=== PATIENT | female | born 1980 | race Caucasian/White ===

== ENCOUNTER 2018-07-09 11:17 | Observation (INO) | payer BC, SELFPAY ==
--- OUTSIDE RECORDS SUMMARY | 2018-07-09 11:25 | XMS REPORT | Clinical Summary ---
:1980 Author Organization [facility] Address [address] [place] [address] Care Team Providers Name Role Phone Oswaldo Ahmadi MD Primary Care Provider Allergies No Known Allergies Current Medications Prescription Sig. Disp. Refills Start Date End Date Status metFORMIN XR Take 500 mg by 03/15/2018 Active (GLUCOPHAGE-XR) 500 mouth. mg 24 hr tablet VITAMIN D2 50,000 Take 50,000 1 2018 Active unit capsule Units by mouth once a week. escitalopram Take 20 mg by 12 04/21/2018 Active (LEXAPRO) 10 MG mouth daily. tablet estradiol (CLIMARA) APPLY 1 PATCH 4 03/06/2018 Active 0.1 mg/24 hr TO SKIN WEEKLY. ALPRAZolam (XANAX) Take 0.5 mg by 02/21/2018 Active 0.5 MG tablet mouth. dextroamphetamine-a Take 10 mg by 03/15/2018 Active mphetamine mouth. (ADDERALL) 20 mg tablet estradiol (ESTRACE) Apply nightly 42.5 g 11 05/22/2018 05/22/2019 Active 0.01 % (0.1 for 2 weeks, mg/gram) vaginal then 2 times cream per week losartan (COZAAR) Take 100 mg by 1 05/30/2018 Active 100 MG tablet mouth daily. losartan-hydrochlor Take 1 tablet 06/18/2018 Discontinued othiazide (HYZAAR) by mouth. 100-12.5 mg per tablet traMADol (ULTRAM) Take 1 tablet 20 tablet 0 06/22/2018 06/27/2018 50 mg tablet (50 mg total) by mouth every 6 (six) hours as needed for moderate pain for up to 5 days. nitrofurantoin, Take 1 capsule 6 capsule 0 06/22/2018 06/25/2018 macrocrystal-monohy (100 mg total) drate, (MACROBID) by mouth 2 100 MG capsule (two) times a day for 3 days. Active Problems Problem Noted Date Appendicitis 03/23/2017 Attention deficit disorder of adult 10/28/2015 Surgical menopause on hormone replacement therapy 07/22/2015 Anemia 05/21/2015 Endometriosis determined by laparoscopy 05/20/2015 Other specified symptom associated with female genital organs 05/20/2015 Encounters Date Type Specialty Care Team Description 07/03/2018 Office Visit Urology Gwendolyn Xavier, Post-operative state (Primary Dx) 06/22/2018 Hospital Encounter Urology Gwendolyn Xavier MD 06/22/2018 Procedure Pass Urology 06/22/2018 Surgery Urology Gwendolyn Xavier, PLACEMENT OF RETROPUBIC MIDURETHRAL SLING, CYSTO 06/21/2018 Telephone Urology Belinda Hinds MA 06/18/2018 Anesthesia Event Urology Floresita Lora NP 06/13/2018 Procedure visit Urology Gwendolyn Xavier, ZARINA (stress urinary MD incontinence, female) (Primary Dx) 06/12/2018 Telephone Urology Joya Juan LVN 06/06/2018 Telephone Urology Gwendolyn Xavier MD 06/04/2018 Telephone Urology Gwendolyn Xavier MD 05/28/2018 Telephone Urology Gwendolyn Xavier MD 05/23/2018 Telephone Urology Gwendolyn Xavier MD 05/22/2018 Office Visit Urology Gwendolyn Xavier, Mixed stress and urge urinary incontinence (Primary Dx); Vaginal atrophy after 07/08/2017 Family History Relation Name Status Comments Father Alive Mother Alive Social History Tobacco Use Types Packs/Day Years Used Date Current Every Day Smoker 0.5 20 Smokeless Tobacco: Never Used Alcohol Use Drinks/Week oz/Week Comments Yes Sex Assigned at Date Recorded Not on file Last Filed Vital Signs Vital Sign Reading Time Taken Blood Pressure 114/58 06/22/2018 10:57 AM CDT Pulse 72 06/22/2018 10:57 AM CDT Temperature 36.5 C (97.7 F) 06/22/2018 9:31 AM CDT Respiratory Rate 15 06/22/2018 10:57 AM CDT Oxygen Saturation 98% 06/22/2018 10:57 AM CDT Inhaled Oxygen Concentration - - Weight 80.5 kg (177 lb 6 oz) 06/22/2018 6:32 AM CDT Height 165.1 cm (5' 5") 06/22/2018 6:32 AM CDT Body Mass Index 29.52 06/22/2018 6:32 AM CDT Plan of Treatment Date Type Specialty Care Team Description 08/01/2018 Office Visit Urology Gwendolyn Xavier MD [address] [facility] [address] [place] [address] Health Maintenance Due Date Last Done Comments CERVICAL CANCER SCREENING 2000 INFLUENZA VACCINE 04/11/2018 Implants Implanted Type Area Greige Goods Marker Device Expiration Model / Identifier Date Serial / Lot System Sling Mdurethrl Trnsvagnl Mesh Asmbly Advantage Fit - [id number] Urological N/A: BSC 03/26/2021 [id number] / Implanted: Qty: 1 on 06/22/2018 by Gwendolyn Xavier MD Implants or N/A UROLOGY/GYNECOL / Sets [id number] Procedures Procedure Name Priority Date/Time Associated Comments Diagnosis [id number] Routine 07/03/2018 11:41 Post-operative Results for this AM CDT state procedure are in the results section. POC URINALYSIS Routine 07/03/2018 11:41 Post-operative Results for this DIPSTICK AM CDT state procedure are in the results section. OK AN ELECTIVE Routine 06/22/2018 8:21 SUPRAGLOTTIC AIRWAY AM CDT Procedure Note - Refugio Diallo CRNA - 06/22/2018 8:21 AM CDT Airway Date/Time: 06/22/2018 8:21 AM Performed by: REFUGIO DIALLO Authorized by: URBANO ALVAREZ Location: OR Urgency: Elective Difficult Airway: No Resident/ENAMEL BURNER/AA: REFUGIO DIALLO Performed by: resident/ENAMEL BURNER/AA Preoxygenated with 100% O2: Yes C-spine Precautions Maintained Throughout: Yes Mask Ventilation: Not attempted Final Airway Type: Supraglottic airway Final LMA: Classic LMA Size: 4 Number of Attempts at Approach: 1 SLING, PUBOVAGINAL 06/22/2018 8:00 AM CDT Female genuine stress incontinence Case Notes REQ 0800 START Special Needs REQ 0800 START POC GLUCOSE Routine 06/22/2018 6:54 Results for this AM CDT procedure are in the results section. TYPE AND SCREEN Routine 06/22/2018 6:15 Results for this AM CDT procedure are in the results section. MICROSCOPIC Routine 06/13/2018 1:59 Results for this EXAMINATION PM CDT procedure are in the results section. URINALYSIS, AUTOMATED Routine 06/13/2018 1:59 Results for this WITH MICROSCOPY PM CDT procedure are in the results section. URINE CULTURE Routine 06/13/2018 1:59 ZARINA (stress urinary Results for this PM CDT incontinence, procedure are in female) the results section. PT AND PTT Routine 06/13/2018 1:56 ZARINA (stress urinary Results for this PM CDT incontinence, procedure are in female) the results section. CBC WITH PLATELET AND Routine 06/13/2018 1:56 ZARINA (stress urinary Results for this DIFFERENTIAL PM CDT incontinence, procedure are in female) the results section. COMPREHENSIVE Routine 06/13/2018 1:56 ZARINA (stress urinary Results for this METABOLIC PANEL PM CDT incontinence, procedure are in female) the results section. FL URETHROGRAM URO Routine 06/13/2018 12:08 ZARINA (stress urinary PM CDT incontinence, female) UROFLOWMETRY COMPLEX Routine 06/13/2018 12:08 ZARINA (stress urinary (F-P-F) PM CDT incontinence, female) VPS INTRA ABD COMPLEX Routine 06/13/2018 12:08 ZARINA (stress urinary (LPP) PM CDT incontinence, female) VPS INTERMED Routine 06/13/2018 12:08 ZARINA (stress urinary (FR,EMG,PVES-PABD: PM CDT incontinence, PDET) female) CYSTOMETROGRAM COMPLEX Routine 06/13/2018 12:08 ZARINA (stress urinary (CMG-PVES) PM CDT incontinence, female) MICROSCOPIC Routine 05/22/2018 11:38 Results for this EXAMINATION AM CDT procedure are in the results section. URINALYSIS, AUTOMATED Routine 05/22/2018 11:38 Results for this WITH MICROSCOPY AM CDT procedure are in the results section. URINE CULTURE Routine 05/22/2018 11:38 Mixed stress and Results for this AM CDT urge urinary procedure are in incontinence the results Vaginal atrophy section. [id number] Routine 05/22/2018 9:50 Mixed stress and Results for this AM CDT urge urinary procedure are in incontinence the results section. POC URINALYSIS Routine 05/22/2018 9:36 Mixed stress and Results for this DIPSTICK AM CDT urge urinary procedure are in incontinence the results section. after 07/08/2017 Results POC BLADDER SCAN/PVR (07/03/2018 11:41 AM)Only the most recent of2 resultswithin the time period is included. Volume PVR 0ml Specimen Urine POC urinalysis dipstick (07/03/2018 11:41 AM)Only the most recent of2 resultswithin the time period is included. Color urine, POC Yellow Clarity urine, POC Clear Glucose urine, POC Negative Negative Bilirubin urine, POC Negative Negative Ketones urine, POC Negative Negative Specific gravity urine, POC 1.015 1.005 - 1.030 Blood urine, POC Moderate (A) Negative pH urine, POC 7.0 5.0, 5.5, 6.0, 6.5, 7.0, 7.5, 8.0, 8.5 Protein urine, POC Negative Negative Urobilinogen urine, POC <2.0 <2.0 Nitrite urine, POC Negative Negative Leukocyte esterase urine, POC Negative Negative Specimen Urine POC glucose (06/22/2018 6:54 AM) POC glucose 116 (H) 65 - 99 mg/dL [facility] DEPARTMENT OF PATHOLOGY AND Comment: GENOMIC MEDICINE COUNTS INCLUDE 234 BEDS AT THE [facility] Notified RN Meter ID: [id number] Systems Lead: Cayetano Levy Performing Organization Address City/[facility] Phone Number [facility] DEPARTMENT OF PATHOLOGY AND [address] [place] [phone] GENOMIC MEDICINE Type and screen (06/22/2018 6:15 AM) ABO grouping B [facility] DEPARTMENT OF PATHOLOGY AND GENOMIC MEDICINE Rh type POS [facility] DEPARTMENT OF PATHOLOGY AND GENOMIC MEDICINE Antibody screen (gel) NEG [facility] DEPARTMENT OF PATHOLOGY AND GENOMIC MEDICINE Specimen Blood Performing Organization Address City/[facility] Cent[facility]ode Phone Number [facility] DEPARTMENT OF PATHOLOGY AND [address] [place] [phone] GENOMIC MEDICINE Microscopic Examination (06/13/2018 1:59 PM)Only the most recent of2 resultswithin the time period is included. WBC, UA 0-5 0 - 5 /hpf [facility] RBC, UA 0-2 0 - 2 /hpf [facility] Epithelial cells (non renal) 0-10 0 - 10 /hpf [facility] Mucus, UA Present Not Estab. [facility] Bacteria, UA Few None seen/Few [facility] Narrative Performed At Performed at: [facility] [address] [place], [place] [id number] Leadership Intern: Hugo Stinson MD, Phone:[phone] Performing Organization Address [facility] [place] Phone Number [facility] Urinalysis, automated with microscopy (06/13/2018 1:59 PM)Only the most recent of2 resultswithin the time period is included. Specific gravity, urine 1.024 1.005 - 1.030 [facility] pH, urine 6.0 5.0 - 7.5 [facility] Color, UA Yellow Yellow [facility] Appearance Clear Clear [facility] WBC esterase, urine Negative Negative [facility] Protein, UA Negative Negative/Trace [facility] Glucose, urine Negative Negative [facility] Ketones, UA Negative Negative [facility] Occult blood, urine 2+ (A) Negative [facility] Bilirubin, UA Negative Negative [facility] Urobilinogen, UA 0.2 0.2 - 1.0 mg/dL [facility] Nitrite, UA Negative Negative [facility] Microscopic examination See below:Comment: Microscopic [facility] was indicated and was performed. Narrative Performed At Performed at: [facility] [address] [place], [place] [id number] Leadership Intern: Hugo Stinson MD, Phone:[phone] Performing Organization Address [facility] [place] Phone Number [facility] Urine culture (06/13/2018 1:59 PM)Only the most recent of2 resultswithin the time period is included. Urine culture No growth [facility] Specimen Urine Narrative Performed At Performed at:[facility] [address] [place], [place] [id number] Leadership Intern: Hugo Stinson MD, Phone:[phone] Performing Organization Address [facility] [place] Phone Number [facility] PT and PTT (06/13/2018 1:56 PM) INR 1.0 0.8 - 1.2 [facility] Comment: Reference interval is for non-anticoagulated patients. Suggested INR therapeutic range for Vitamin K antagonist therapy: Standard Dose (moderate intensity therapeutic range): 2.0 - 3.0 Higher intensity therapeutic range 2.5 - 3.5 Prothrombin time 10.0 9.1 - 12.0 sec [facility] aPTT 30 24 - 33 sec [facility] Comment: This test has not been validated for monitoring unfractionated heparin therapy. aPTT-based therapeutic ranges for unfractionated heparin therapy have not been established. For general guidelines on Heparin monitoring, refer to the [facility] Directory of Services. Specimen Blood Narrative Performed At Performed at: - [facility] [address] [place], [id number] Leadership Intern: Hugo Stinson MD, Phone:[phone] Performing Organization Address City/State/[facility] Phone Number [facility] CBC with platelet and differential (06/13/2018 1:56 PM) WBC 12.4 (H) 3.4 - 10.8 x10E3/uL [facility] RBC 4.77 3.77 - 5.28 x10E6/uL [facility] HGB 14.6 11.1 - 15.9 g/dL [facility] HCT 42.7 34.0 - 46.6 % [facility] MCV 90 79 - 97 fL [facility] MCH 30.6 26.6 - 33.0 pg [facility] MCHC 34.2 31.5 - 35.7 g/dL [facility] RDW 14.0 12.3 - 15.4 % [facility] Platelet count 239 150 - 379 x10E3/uL [facility] Neutrophils 61 Not Estab. % [facility] Lymphocytes 32 Not Estab. % [facility] Monocytes 5 Not Estab. % [facility] Eosinophils 2 Not Estab. % [facility] Basophils 0 Not Estab. % [facility] Neutrophils, absolute 7.5 (H) 1.4 - 7.0 x10E3/uL [facility] Lymphocytes, absolute 4.0 (H) 0.7 - 3.1 x10E3/uL [facility] Monocytes, absolute 0.7 0.1 - 0.9 x10E3/uL [facility] Eosinophils, absolute 0.2 0.0 - 0.4 x10E3/uL [facility] Basophils, absolute 0.0 0.0 - 0.2 x10E3/uL [facility] Immature granulocytes 0 Not Estab. % [facility] Immature grans (abs) 0.0 0.0 - 0.1 x10E3/uL [facility] Specimen Blood Narrative Performed At Performed at: - [facility] [address] [place], [place] [id number] Leadership Intern: Hugo Stinson MD, Phone:[phone] Performing Organization Address [facility] [place] Phone Number [facility] Comprehensive metabolic panel (06/13/2018 1:56 PM) Glucose 146 (H) 65 - 99 mg/dL [facility] BUN, whole blood 13 6 - 20 mg/dL [facility] Creatinine 0.66 0.57 - 1.00 mg/dL [facility] EGFR Non-Afr. Macanese 112 >59 mL/min/1.73 [facility] EGFR 129 >59 mL/min/1.73 [facility] BUN/creatinine ratio 20 9 - 23 [facility] Sodium 139 134 - 144 mmol/L [facility] Potassium 4.1 3.5 - 5.2 mmol/L [facility] Chloride 100 96 - 106 mmol/L [facility] CO2 22 20 - 29 mmol/L [facility] Calcium 9.4 8.7 - 10.2 mg/dL [facility] Protein 6.9 6.0 - 8.5 g/dL [facility] Albumin, S 4.7 3.5 - 5.5 g/dL [facility] Globulin, total 2.2 1.5 - 4.5 g/dL [facility] Albumin/globulin ratio 2.1 1.2 - 2.2 [facility] Total bilirubin 0.4 0.0 - 1.2 mg/dL [facility] Alkaline phosphatase 87 39 - 117 IU/L [facility] AST 16 0 - 40 IU/L [facility] ALT 17 0 - 32 IU/L [facility] Specimen Blood Narrative Performed At Performed at: - [facility] [place], [id number] Leadership Intern: Hugo Stinson MD, Phone:[phone] Performing Organization Address City/State/Zipcode Phone Number [facility] FL URETHROGRAM URO (06/13/2018 12:08 PM)Uroflowmetery complex (F-P-F) (2017 12:08 PM)VPS intra abd complex (LPP) (06/13/2018 12:08 PM)VPS intermed (FR , EMG, Pves-Pabd: pdet) (06/13/2018 12:08 PM)after 07/08/2017 Insurance Payer Benefit Plan / Group Subscriber ID Type Phone Address BCBS BCBS CHOICE PPO/[employer]PL PPO xxxxxxxxxxxx PPO Home: [phone] [place] [phone]
[2018-07-09 11:52] LABS: Absolute Lymphocytes (CBC) 3.2 K/uL (0.7-4.9); Absolute Monocytes 0.5 K/uL (0.1-1.3); Absolute Neutrophil 5.4 K/uL (1.8-8.0); Basophils % 0.5 % (0-1.3); Eosinophils % 1.4 % (0-4.4); Hematocrit 41.1 % (36.0-45.0); Lymphocytes % 34.4 % (15.3-44.8); MCH 30.7 pg (27.0-35.0); MCV 90.2 fL (80-100); MPV 8.9 fL (7.6-11.3); Monocytes % 5.2 % (3.3-12.3); Protime INR 0.99; RBC Red Blood Cell Count 4.55 M/uL (3.86-4.86)
[2018-07-09] MEDS ORDERED: ASPIRIN 81 MG CHEWABLE TABLET ONE (11:54)
[2018-07-09 12:12] LABS: ALT/SGPT 25 U/L (12-78); AST/SGOT 14 U/L (15-37); Albumin 3.6 g/dL (3.4-5.0); Alkaline Phosphatase 91 U/L (45-117); BUN Blood Urea Nitrogen 15 mg/dL (7-18); Bicarbonate 26 mmol/L (21-32); Bilirubin Direct 0.1 mg/dL (0-0.2); Bilirubin Total 0.3 mg/dL (0.2-1.0); Glucose Level 131 mg/dL (74-106); Magnesium 2.2 mg/dL (1.8-2.4); NT PRO-BNP 41 pg/mL (<125); Potassium 3.8 mmol/L (3.5-5.1); Sodium Level 138 mmol/L (136-145); Troponin (Emerg Dept Use Only) < 0.02 ng/mL (0.0-0.045)
--- NOTE | 2018-07-09 12:17 | RAD REPORT ---
EXAM DESCRIPTION: RAD - Chest Single View - 07/09/2018 12:11 pm CLINICAL HISTORY: CHEST PAIN Chest pain. COMPARISON: No comparisons FINDINGS: Portable technique limits examination quality. The lungs are grossly clear. The heart is upper limit of normal in size. No displaced fractures. IMPRESSION: No acute intrathoracic process suspected.
--- NOTE | 2018-07-09 13:14 | ER ---
Nurse's Notes [facility] Name: Sofia Tejada Age: 38 yrs Sex: Female : 1980 Arrival Date: 07/09/2018 Time: 11:18 Bed 7 Private MD: Diagnosis: Chest pain, unspecified;Epilepsy and recurrent seizures Presentation: 07/09 11:19 Presenting complaint: EMS states: witnessed seizure at work, lasted approx 5 min, 2nd iw seizure en route to ER approx 3 min, pt was postictal on scene, +hx of seizures, not on meds, does not have neurologist, pt arrives to ER, A\T\OX3, pt c/o chest pain, SOB, diaphoresis prior to first seizure, still c/o chest pain aggravated by deep breath. Transition of care: patient was not received from another setting of care. Onset of symptoms was July 09, 2018. Risk Assessment: Do you want to hurt yourself or someone else? Patient reports no desire to harm self or others. Initial Sepsis Screen: Does the patient meet any 2 criteria? No. Patient's initial sepsis screen is negative. Does the patient have a suspected source of infection? No. Patient's initial sepsis screen is negative. Care prior to arrival: Medication(s) given: Ativan 2 mg IVP IV initiated. 18 GA, in the left antecubital area, Glucose check: 150 Oxygen administered. via nasal cannula. Activity prior to arrival: seizure. 11:19 Method Of Arrival: EMS: [facility] iw 11:19 Acuity: PEÑA 2 iw Triage Assessment: 14:18 General: Appears in no apparent distress. Behavior is calm, cooperative. Pain: iw Complains of pain in chest. 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 - Social history:: Smoking status: Patient uses tobacco products, smokes one-half pack cigarettes per day. - Ebola Screening: : Patient negative for fever greater than or equal to 101.5 degrees Fahrenheit, and additional compatible Ebola Virus Disease symptoms Patient denies exposure to infectious person Patient denies travel to an Ebola-affected area in the 21 days before illness onset No symptoms or risks identified at this time. Screenin:17 Abuse screen: Denies threats or abuse. Denies injuries from another. Nutritional iw screening: No deficits noted. Tuberculosis screening: No symptoms or risk factors identified. Fall Risk IV access (20 points). Assessment: 11:30 General: Appears in no apparent distress. Behavior is calm, cooperative. iw 11:30 Pain: Complains of pain in chest. Neuro: Level of Consciousness is awake, alert, obeys iw commands, Oriented to person, place, time, situation, Moves all extremities. Full function. Cardiovascular: Reports chest pain, Capillary refill < 3 seconds in bilateral fingers Patient's skin is warm and dry. Respiratory: Respiratory effort is even, unlabored. Derm: Skin is intact, is healthy with good turgor. Musculoskeletal: Range of motion: intact in all extremities. 12:30 Reassessment: Patient appears in no apparent distress at this time. Patient and/or iw family updated on plan of care and expected duration. Pain level reassessed. Patient is alert, oriented x 3, equal unlabored respirations, skin warm/dry/pink. pt c/o chest pain 2/10 Patient states feeling better. 14:17 Reassessment: Patient appears in no apparent distress at this time. Patient and/or iw family updated on plan of care and expected duration. Pain level reassessed. Patient is alert, oriented x 3, equal unlabored respirations, skin warm/dry/pink. VSS, family at bedside, attempt to call report to 2nd floor, bed not clean, will call me back. 14:39 Reassessment: called into pt room by , pt states she feels like she's going to iw pass out, has chest pain and SOB, pt not following commands, VSS, XE=103/92, HR=64, FSBS=69. 14:55 Reassessment: pt still not responding, respirations even and unlabored. iw 16:02 Reassessment: pt states she is feeling bad again, feels hot and light headed, HW=306, iw DE=336/71, HR=60. Vital Signs: 11:18 BP 133 / 83; Pulse 67; Resp 16; Temp 98.1(O); Pulse Ox 100% ; Weight 80.29 kg; Height 5 iw ft. 5 in. (165.10 cm); Pain 5/10; 12:31 BP 95 / 58; Pulse 60; Resp 16; Pulse Ox 98% on R/A; Pain 2/10; iw 13:12 BP 104 / 77; Pulse 52; Resp 16; Pulse Ox 98% on R/A; Pain 2/10; iw 11:18 Body Mass Index 29.45 (80.29 kg, 165.10 cm) iw ED Course: 11:18 Patient arrived in ED. iw 11:19 EKG done, by registered radiologic technologist. reviewed by Alex ALBA. sm3 11:20 Maintain EMS IV. Dressing intact. Good blood return noted. Site clean \T\ dry. Gauge \T\ ss site: 18 gauge in L AC, inserted by ABHISHEK Johnson EMT. 11:21 Triage completed. iw 11:21 Patient has correct armband on for positive identification. Placed in gown. Call light ss in reach. Side rails up X2. Seizure precautions initiated. project controls scheduler on. Pulse ox on. NIBP on. 11:23 Alex Tucker PA is PHCP. jr8 11:23 Ari Catalan MD is Attending Physician. jr8 11:30 Arm band placed on. iw 11:46 Tiara Ojeda, RN is Primary Nurse. iw 12:11 XRAY Chest (1 view) In Process Unspecified. EDMS 13:13 Cheryl Ho MD is Hospitalizing Provider. jr8 14:18 No provider procedures requiring assistance completed. Patient admitted, IV remains in iw place. Administered Medications: 11:53 Drug: Aspirin Chewable Tablet 324 mg Route: PO; sg 12:30 Follow up: Response: No adverse reaction iw 14:55 Drug: D50W 25 ml Route: IVP; Site: left antecubital; sg 15:15 Follow up: Response: No adverse reaction iw 14:55 Drug: NS 0.9% 1000 ml Route: IV; Rate: 100 ml/hr; Site: left antecubital; sg 14:55 Not Given (Physician Discretion): CEREbyx 1 grams IVPB once iw 15:05 Drug: Ativan 1 mg Route: IVP; Site: left antecubital; iw 15:40 Follow up: Response: No adverse reaction iw 15:18 Drug: Keppra 1000 mg Route: IV; Rate: calculated rate; Site: left antecubital; iw 15:45 Follow up: IV Status: Completed infusion iw Point of Care Testing: Blood Glucose: 11:18 Blood Glucose: 130 mg/dL; iw Ranges: Outcome: 13:14 Decision to Hospitalize by Provider. tam 16:21 Admitted to Tele accompanied by tech, family with patient, via stretcher, room 229, iw Report called to TY Adames 16:21 Condition: good 16:21 Discharge instructions given to patient, family, Instructed on the need for admit, Demonstrated understanding of instructions. 16:36 Patient left the ED. iw Signatures: Dispatcher [employer] EDPrashant Vásquez RN RN Tiara El RN RN Kylie Subramanian RN RN ss Roszak, Josh, PA PA jr8 Li Sanford 3 Corrections: (The following items were deleted from the chart) 19:26 11:30 General: Appears in no apparent distress. iw iw
--- NOTE | 2018-07-09 13:14 | EDPHYS ---
Physician Documentation [facility] Name: Sofia Tejada Age: 38 yrs Sex: Female : 1980 Arrival Date: 07/09/2018 Time: 11:18 Bed 7 Private MD: ED Physician Ari Catalan HPI: 07/09 13:10 This 38 yrs old Female presents to ER via EMS with complaints of jr8 Seizure/chest pain/near syncope. 13:10 Patient stated that she felt that her sugar was slightly low this morning while at jr8 work. Had a DrAlex Cain and some candy. [place] better. A little while after had sudden onset severe chest pressure with diaphoresis. Stated that she started to get tunnel vision and could not see. "felt as if she was going to ". Co workers witnessed 2 seizures. EMS witness one. Patient upon arrival not postictal and back to baseline. Still with mild chest tightness. Stated that this is very uncharacteristic of her and her seizure history . Severity of symptoms: At their worst the symptoms were moderate in the emergency department the symptoms are unchanged. The patient has not experienced similar symptoms in the past. The patient has not recently seen a physician. 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 - Social history:: Smoking status: Patient uses tobacco products, smokes one-half pack cigarettes per day. - Ebola Screening: : Patient negative for fever greater than or equal to 101.5 degrees Fahrenheit, and additional compatible Ebola Virus Disease symptoms Patient denies exposure to infectious person Patient denies travel to an Ebola-affected area in the 21 days before illness onset No symptoms or risks identified at this time. ROS: 13:10 Eyes: Negative for injury, pain, redness, and discharge, ENT: Negative for injury, jr8 pain, and discharge, Neck: Negative for injury, pain, and swelling, Respiratory: Negative for shortness of breath, cough, wheezing, and pleuritic chest pain, Abdomen/GI: Negative for abdominal pain, nausea, vomiting, diarrhea, and constipation, Back: Negative for injury and pain, MS/Extremity: Negative for injury and deformity, Skin: Negative for injury, rash, and discoloration. 13:10 Cardiovascular: Positive for chest pain, Negative for edema, orthopnea, palpitations, paroxysmal nocturnal dyspnea. 13:10 Neuro: Positive for loss of consciousness, seizure activity, near syncope, visual changes. Exam: 13:10 Eyes: Pupils equal round and reactive to light, extra-ocular motions intact. Lids and jr8 lashes normal. Conjunctiva and sclera are non-icteric and not injected. Cornea within normal limits. Periorbital areas with no swelling, redness, or edema. ENT: Nares patent. No nasal discharge, no septal abnormalities noted. Tympanic membranes are normal and external auditory canals are clear. Oropharynx with no redness, swelling, or masses, exudates, or evidence of obstruction, uvula midline. Mucous membranes moist. Neck: Trachea midline, no thyromegaly or masses palpated, and no cervical lymphadenopathy. Supple, full range of motion without nuchal rigidity, or vertebral point tenderness. No Meningismus. Cardiovascular: Regular rate and rhythm with a normal S1 and S2. No gallops, murmurs, or rubs. Normal PMI, no JVD. No pulse deficits. Respiratory: Lungs have equal breath sounds bilaterally, clear to auscultation and percussion. No rales, rhonchi or wheezes noted. No increased work of breathing, no retractions or nasal flaring. Abdomen/GI: Soft, non-tender, with normal bowel sounds. No distension or tympany. No guarding or rebound. No evidence of tenderness throughout. Back: No spinal tenderness. No costovertebral tenderness. Full range of motion. Skin: Warm, dry with normal turgor. Normal color with no rashes, no lesions, and no evidence of cellulitis. MS/ Extremity: Pulses equal, no cyanosis. Neurovascular intact. Full, normal range of motion. Neuro: Awake and alert, GCS 15, oriented to person, place, time, and situation. Cranial nerves II-XII grossly intact. Motor strength 5/5 in all extremities. Sensory grossly intact. Cerebellar exam normal. Normal gait. Vital Signs: 11:18 BP 133 / 83; Pulse 67; Resp 16; Temp 98.1(O); Pulse Ox 100% ; Weight 80.29 kg; Height 5 iw ft. 5 in. (165.10 cm); Pain 5/10; 12:31 BP 95 / 58; Pulse 60; Resp 16; Pulse Ox 98% on R/A; Pain 2/10; iw 13:12 BP 104 / 77; Pulse 52; Resp 16; Pulse Ox 98% on R/A; Pain 2/10; iw 11:18 Body Mass Index 29.45 (80.29 kg, 165.10 cm) iw MDM: 11:23 Patient medically screened. jr8 13:13 Data reviewed: vital signs, nurses notes, lab test result(s), EKG, radiologic studies, jr8 plain films. Data interpreted: Pulse oximetry: on room air is 98 %. Interpretation: normal. Counseling: I had a detailed discussion with the patient and/or guardian regarding: the historical points, exam findings, and any diagnostic results supporting the discharge/admit diagnosis, lab results, radiology results, the need for further work-up and treatment in the hospital. Physician consultation: Cheryl Ho MD was called at 13:13, was contacted at 13:13, regarding admission, to the telemetry unit. consult, patient's condition, and will see patient. 15:51 ED course: Patient had seizure episode down while in ED awaiting bed upstairs. Doing jr8 better now post treatment. Back to baseline . 07/09 11:20 Order name: glucometer results - FOR PT WITH NO ID ss 07/09 11:24 Order name: Basic Metabolic Panel; Complete Time: 12:26 8 07/09 11:24 Order name: CBC with Diff; Complete Time: 12:00 8 07/09 11:24 Order name: LFT's; Complete Time: 12:26 jr8 07/09 11:24 Order name: Magnesium; Complete Time: 12:26 jr8 07/09 11:24 Order name: NT PRO-BNP; Complete Time: 12:26 8 07/09 11:24 Order name: PT-INR; Complete Time: 12:02 8 07/09 11:24 Order name: Troponin (emerg Dept Use Only); Complete Time: 12:26 jr8 07/09 11:24 Order name: XRAY Chest (1 view); Complete Time: 12:26 jr8 07/09 13:29 Order name: EEG Request EDMS 07/09 15:43 Order name: Glucose, Ancillary Testing; Complete Time: 15:51 EDMS 07/09 15:43 Order name: Glucose, Ancillary Testing; Complete Time: 15:51 EDMS 07/09 11:24 Order name: EKG; Complete Time: 11:24 jr8 07/09 11:24 Order name: Cardiac monitoring; Complete Time: 11:35 jr8 07/09 11:24 Order name: EKG - Nurse/Tech; Complete Time: 11:35 jr8 07/09 11:24 Order name: IV Saline Lock; Complete Time: 11:35 jr8 07/09 11:24 Order name: Labs collected and sent; Complete Time: 11:35 jr8 07/09 11:24 Order name: O2 Per Protocol; Complete Time: 11:35 jr8 07/09 11:24 Order name: O2 Sat Monitoring; Complete Time: 11:35 jr8 Administered Medications: 11:53 Drug: Aspirin Chewable Tablet 324 mg Route: PO; sg 12:30 Follow up: Response: No adverse reaction iw 14:55 Drug: D50W 25 ml Route: IVP; Site: left antecubital; sg 15:15 Follow up: Response: No adverse reaction iw 14:55 Drug: NS 0.9% 1000 ml Route: IV; Rate: 100 ml/hr; Site: left antecubital; sg 14:55 Not Given (Physician Discretion): CEREbyx 1 grams IVPB once iw 15:05 Drug: Ativan 1 mg Route: IVP; Site: left antecubital; iw 15:40 Follow up: Response: No adverse reaction iw 15:18 Drug: Keppra 1000 mg Route: IV; Rate: calculated rate; Site: left antecubital; iw 15:45 Follow up: IV Status: Completed infusion iw Point of Care Testing: Blood Glucose: 11:18 Blood Glucose: 130 mg/dL; iw Ranges: Critical Glucose Levels:Adult <50 mg/dl or >400 mg/dl <40 mg/dl or >180 mg/dl Disposition: 07/10 09:24 Co-signature as Attending Physician, Ari Catalan MD I agree with the assessment and samuel plan of care. Disposition: 07/09/18 13:14 Hospitalization ordered by Cheryl Ho for Observation. Preliminary diagnosis are Chest pain, unspecified, Epilepsy and recurrent seizures. - Bed requested for Telemetry/MedSurg (observation). - Status is Observation. iw - Condition is Stable. - Problem is new. - Symptoms have improved. UTI on Admission? No Signatures: Dispatcher [employer] EDMS Pari Salmeron bd Anayeli Garza RN RN dw Prashant Lackey RN RN Ari Catalan MD MD cha Williams, Irene, RN RN iw Alex Tucker PA PA jr8 Corrections: (The following items were deleted from the chart) 07/09 14:04 13:14 Hospitalization Ordered by Cheryl Ho MD for Observation. Preliminary dw diagnosis is Chest pain, unspecified; Epilepsy and recurrent seizures. Bed requested for Telemetry/MedSurg (observation). Status is Observation. Condition is Stable. Problem is new. Symptoms have improved. UTI on Admission? No. jr8 15:06 14:04 07/09/2018 13:14 Hospitalization Ordered by Cheryl Ho MD for Observation. bd Preliminary diagnosis is Chest pain, unspecified; Epilepsy and recurrent seizures. Bed requested for Telemetry/MedSurg (observation). Status is Observation. Condition is Stable. Problem is new. Symptoms have improved. UTI on Admission? No. dw 16:07 15:06 07/09/2018 13:14 Hospitalization Ordered by Cheryl Ho MD for Observation. dw Preliminary diagnosis is Chest pain, unspecified; Epilepsy and recurrent seizures. Bed requested for Telemetry/MedSurg (observation). Status is Observation. Condition is Stable. Problem is new. Symptoms have improved. UTI on Admission? No. bd 16:36 16:07 07/09/2018 13:14 Hospitalization Ordered by Cheryl Ho MD for Observation. iw Preliminary diagnosis is Chest pain, unspecified; Epilepsy and recurrent seizures. Bed requested for Telemetry/MedSurg (observation). Status is Observation. Condition is Stable. Problem is new. Symptoms have improved. UTI on Admission? No. dw
[2018-07-09] MEDS ORDERED: ACETAMINOPHEN 500 MG TAB PO PRN (14:51)
[2018-07-09] MEDS ORDERED: ONDANSETRON 4 MG/2 ML VIAL IV PRN (14:51)
[2018-07-09] MEDS: NA CHLORIDE 0.9% 1,000 ML IV SCH (14:51)
[2018-07-09] MEDS ORDERED: D50W 25 GM/50 ML SYRINGE IV ONE (14:58)
[2018-07-09] MEDS ORDERED: NA CHLORIDE 0.9% 1,000 ML ONE (14:58)
[2018-07-09] MEDS ORDERED: levETIRAcetam 1,000 MG in NA CHLORIDE 0.9% 100 ML IV ONE (15:00)
[2018-07-09] MEDS ORDERED: LORazepam 2 MG/ML VIAL ONE (15:05)
[2018-07-09 15:48] VITALS: BMI 29.4
--- NOTE | 2018-07-09 15:48 | EKG ---
Test Date: 2018-07-09 Test Time: 11:12:13 Intake Manager: [place] MEASUREMENT RESULTS: Intervals: Rate: 62 HI: 142 QRSD: 82 QT: 430 QTc: 436 Barnard: P: 57 HI: 142 QRS: 23 T: 18 INTERPRETIVE STATEMENTS: Normal sinus rhythm Normal ECG Compared to ECG 10/18/2011 13:22:18 No significant changes Electronically Signed On 07-09-18 15:47:32 CDT by Juancho Herrera
[2018-07-09] MEDS ORDERED: INFLUENZA VACCINE (for 3y+) 0.5 ML DOSE IMVAC ONE (17:00)
[2018-07-09] MEDS: levETIRAcetam 500 MG in NA CHLORIDE 0.9% 100 ML IV SCH (20:54)
[2018-07-10] MEDS: NA CHLORIDE 0.9% 1,000 ML IV SCH ×2 (00:35→09:50)
[2018-07-10 01:01] VITALS: O2SAT 97
[2018-07-10 05:59] LABS: Absolute Lymphocytes (CBC) 2.9 K/uL (0.7-4.9); Absolute Monocytes 0.5 K/uL (0.1-1.3); Absolute Neutrophil 4.9 K/uL (1.8-8.0); Basophils % 0.4 % (0-1.3); Eosinophils % 1.7 % (0-4.4); Hematocrit 38.1 % (36.0-45.0); MCH 30.4 pg (27.0-35.0); MCV 90.9 fL (80-100); MPV 8.7 fL (7.6-11.3); Monocytes % 6.3 % (3.3-12.3); RBC Red Blood Cell Count 4.19 M/uL (3.86-4.86)
[2018-07-10 06:20] LABS: ALT/SGPT 21 U/L (12-78); AST/SGOT 13 U/L (15-37); Albumin 2.9 g/dL (3.4-5.0); Alkaline Phosphatase 66 U/L (45-117); BUN Blood Urea Nitrogen 13 mg/dL (7-18); Bicarbonate 26 mmol/L (21-32); Bilirubin Total 0.4 mg/dL (0.2-1.0); Glucose Level 111 mg/dL (74-106); Potassium 4.1 mmol/L (3.5-5.1); Sodium Level 142 mmol/L (136-145)
[2018-07-10] MEDS ORDERED: PNEUMOCOCCAL VACCINE 0.5 ML IMVAC ONE (08:00)
[2018-07-10] MEDS ORDERED: ALPRAZOLAM 0.5 MG PO PRN (08:22)
--- NOTE | 2018-07-10 08:24 | P.HP ---
Certification for Inpatient Patient admitted to: Observation With expected LOS: <2 Midnights Patient will require the following post-hospital care: None Practitioner: I am a practitioner with admitting privileges, knowledge of patient current condition, hospital course, and medical plan of care. Services: Services provided to patient in accordance with Admission requirements found in Title 42 Section 412.3 of the Code of Federal Regulations Patient History Date of Service: 07/09/18 Reason for admission: Seizures and chest pain History of Present Illness: Patient is a 38-year-old female who presents to the emergency room with generalized tonic clonic seizure. Patient has a history of seizures but she is not on any anti epileptics. She controls it with her diet. However, over the last 2 weeks she has had multiple seizures. She denies incontinence and she denies biting her tongue. She has seen a neurologist in [place] but does not see with anyone in the local area. She had an EEG done which is pending, and she may need to do an MRI of the brain pending Neurology evaluation. At this time, patient is more awake and alert than she was earlier today. However, she is still slightly lethargic. She appears to be postictal. Keppra has been started and will continue this for now. Further evaluation per Neurology pending EEG studies. Allergies No Known Allergies Allergy (Unverified 10/18/11 14:21) Home Medications: ALPRAZolam [Xanax*] 0.5 mg PO BID PRN 07/09/18 Calcium Carbonate [Calcium] 1,200 mg PO BEDTIME 07/09/18 Cyanocobalamin (Vitamin B-12) [Vitamin B12] 1 tab PO BEDTIME 07/09/18 Escitalopram [Lexapro] 20 mg PO BEDTIME 07/09/18 Losartan Potassium 100 mg PO BEDTIME 07/09/18 Magnesium [Magnesium Gluconate] 400 mg PO BEDTIME 07/09/18 Metformin HCl [Glucophage] 500 mg PO DAILY AFTER SUPPER 07/09/18 - Past Medical/Surgical History Diabetic: Yes -: seizure -: NIDDM -: cholecystectomy -: tonsillectomy -: hysterectomy -: bladder lining - Family History Father Family History: Reviewed- Non-Contributory - Social History Smoking Status: Never smoker Alcohol use: No CD- Drugs: No Caffeine use: Yes Place of Residence: Home Review of Systems 10-point ROS is otherwise unremarkable Physical Examination - Vital Signs Temperature: 97.2 F Blood Pressure: 90/52 Pulse: 58 Respirations: 18 Pulse Ox (%): 96 - Physical Exam General: Alert, In no apparent distress, Oriented x3 HEENT: Atraumatic, PERRLA, Mucous membr. moist/pink, EOMI, Sclerae nonicteric Neck: Supple, 2+ carotid pulse no bruit, No LAD, Without JVD or thyroid abnormality Respiratory: Clear to auscultation bilaterally, Normal air movement Cardiovascular: Regular rate/rhythm, Normal S1 S2 Gastrointestinal: Normal bowel sounds, Soft and benign, Non-distended, No tenderness Musculoskeletal: No clubbing, No swelling, No tenderness Integumentary: No rashes Neurological: Normal gait, Normal speech, Normal strength at 5/5 x4 extr, Normal tone, Normal affect Lymphatics: No axilla or inguinal lymphadenopathy - Studies Laboratory Data (last 24 hrs) 07/09/18 11:14: PT 11.7, INR 0.99 07/09/18 11:14: WBC 9.3, Hgb 14.0, Hct 41.1, Plt Count 205 07/09/18 11:14: Sodium 138, Potassium 3.8, BUN 15, Creatinine 0.70, Glucose 131 H, Magnesium 2.2, Total Bilirubin 0.3, AST 14 L, ALT 25, Alkaline Phosphatase 91 Assessment & Plan - Problems (Diagnosis) (1) Generalized seizure Current Visit: Yes Status: Acute (2) Type 2 diabetes mellitus Current Visit: Yes Status: Acute (3) Hypertension Current Visit: Yes Status: Acute (4) Hypotensive episode Current Visit: Yes Status: Acute - Plan Plan: 1. Gentle hydration 2. Anti epileptics 3. EEG 4. May need further imaging of the brain with an MRI 5. Neurology consultation if available 6. Discuss with patient regarding use of anti epileptics as being beneficial to controlling her seizures 7. Look for causes that may have decreased her seizure threshold 8. GI and DVT prophylaxis Discharge Plan: Home Plan to discharge in: 48 Hours - Advance Directives Does patient have a Living Will: No Does patient have a Durable POA for Healthcare: No - Code Status/Comfort Care Code Status Assessed: Yes Code Status: Full Code Critical Care: No Time Spent Managing PTS Care (In Minutes): 50
[2018-07-10] MEDS: levETIRAcetam 500 MG in NA CHLORIDE 0.9% 100 ML IV SCH (09:50)
--- NOTE | 2018-07-10 12:14 | RAD REPORT ---
EXAM DESCRIPTION: MRI - Brain W/Wo Cont - 07/10/2018 11:46 am CLINICAL HISTORY: seizure, confusion COMPARISON: No comparisons TECHNIQUE: Multi-sequence, multiplanar MR imaging of the brain was performed with contrast. FINDINGS: No intracranial hemorrhage, hydrocephalus, extra-axial fluid collection or acute infarctio n. No edema or shift of midline structures. No intracranial mass. DWI is negative for acute CVA. The midline structures are normally formed. Coronal T1 and T2 weighted sequences show symmetric hippo campal structures and temporal lobes.1 cm polypoid mucosal thickening noted in the inferior right max illary antrum. The paranasal sinuses and mastoids are otherwise clear. Post-contrast images show no abnormal enhancement to suggest tumor or infection. IMPRESSION: No abnormal finding is seen to explain seizure history. No pathologic post-contrast enhancement suspected.
[2018-07-10 14:28] VITALS: BP 122/79; TEMP 97
--- NOTE | 2018-07-10 15:52 | EEG ---
CHART: [id number] TEST ID#: [id number] DATE OF STUDY: 07/09/18 THE EEG WAS RECORDED PORTABLE IN THE ER ON A 17 CHANNEL MACHINE. ELECTRODES WERE APPLIED IN THE USUAL MANNER USING THE INTERNATIONAL 10-20 SYSTEM. THE WAKING BACKGROUND RHYTHM IN THIS RECORD CONSISTS OF VERY WELL DEVELOPED AND WELL ORGANIZED WAVES OF 9 HZ., MAXIMAL IN THE POSTERIOR HEAD REGIONS WHICH ATTENUATE NORMALLY WITH EYE OPENING. LOW- VOLTAGE 18-22 HZ ACTIVITY IS EXPRESSED IN THE FRONTAL REGIONS. THERE ARE NO FOCAL OR LATERALIZING FEATURES. NO EPILEPTIFORM ACTIVITY APPEARS. SLEEP DID NOT OCCUR. HYPERVENTILATION WAS NOT PERFORMED. PHOTIC STIMULATION PRODUCED FAIR DRIVING BILATERALLY. IMPRESSION: NORMAL EEG FOR THE AGE OF THE PATIENT IN [place].
[2018-07-10] MEDS ORDERED: METFORMIN HCL 500 MG PO SCH (17:30)
--- NOTE | 2018-07-10 19:00 | CON ---
Consultation called by Dr. Ceron, hospitalist, because of seizures. History Of Present Illness: Ms. Tejada is a 38-year-old right-handed patient, who reports a history of seizures since age 18. Seizures may have an aura of headaches, visual disturbances of whi te spots, and more she has recently apparently chest pain. When she was younger, she did have more f requent seizures, but prior to this most recent set of seizures, she had been seizure free for 3 year s. Last week after she had surgery, she said this weekend she had 1 seizure at home. The seizure wa s generalized, but there was no tongue biting or loss of bladder control. She came to the hospital y on Monday, after having a generalized seizure and while in the hospital, she had a second ev ent. She did have postictal confusion for several minutes and seizure lasted around 1-2 minutes. In the emergency room laboratory studies included a completely normal complete blood count with differe ntial, normal coagulation panel, and her electrolytes were remarkable for slightly elevated glucose a round 163, calcium slightly low at 8.9. AST was mildly low at 13, ALT normal at 21, alkaline phospha tase normal at 66. Magnesium level normal at 2.0. Her brain MRI that was done earlier today showed no intracranial abnormalities without and with contrast. Her chest x-ray showed no acute intrathorac ic processes. Electrocardiogram showed normal sinus rhythm, was a normal study. No reports on her u rinalysis. Since she has been in the emergency room, she received a loading dose of Keppra and that is a gram and she is now on 500 twice daily. She had no additional seizures since hospitalization. Past Medical History: Epilepsy, [id number] diabetes mellitus. Surgical History: Cholecystectomy, tonsillectomy, hysterectomy, and bladder surgery. Allergies: NO KNOWN DRUG ALLERGIES. Medications At Home: Xanax 0.5 mg twice daily, calcium 1200 mg at bedtime, vitamin B12 daily, Lexapr o 20 mg at bedtime, losartan 100 mg at bedtime, magnesium gluconate 400 mg at bedtime, Glucophage 500 mg daily. Family History: Noncontributory. Social History: The patient did report drinking about 5 beer prior to her most recent seizure while she was at a fair. This was over the weekend that precipitated this admission. She denied any cigar ette smoking or IV drugs. Review of Systems: She denies any recent aside from mentioned above, fevers, chills, nausea, vomiting, myalgias, arthral gias, headaches, weight change, or rash. No psychiatric complaints. No gastrointestinal issues. Physical Examination: Vital Signs: Blood pressure ranged systolic 90 to 100/52 to 55, pulse of 51 to 58, respiratory rate 16 to 18, temperature 97.6, oxygen saturation 96% to 97% on room air. Weight 177 pounds. Height 5 f eet 5 inches. General: Ms. Tejada is resting comfortably in bed. HEENT: She is normocephalic, atraumatic. Sclerae anicteric. Oropharynx is pink and moist. Neck: Supple. Chest: Clear. Heart: Regular. Extremities: Show no edema, cyanosis, or clubbing. Neurological: She is alert and oriented to person, place, time, and situation. She has no expressiv e or receptive aphasias. Cranial nerves 2 through 12 are intact by exam. Motor examination, she has normal bulk and tone in the arms and legs, 5/5 strength proximally and distally. Sensory examinatio n intact to light touch, pinprick, temperature in the arms and legs. Reflexes 2+ in upper and lower extremities. Gait normal stance, stride, and arm swing. Assessment: Ms. 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 She did report taking Topamax for many years, but has been seizure-free for 3 years up to last week after she [place]. She was also very stressed and sleepy prior to the time. Her neurologic examination, EEG, which was just recentl y done and reviewed along with brain MRI are normal. Plan: 1.Continue Keppra 500 mg twice daily for at least a year. After patient is discharged in 10 days, s he should have Keppra trough level done. 2.She was told of the importance of not driving or operating heavy machinery for 3 months from date of last seizure. 3.She was told of the importance of regular exercise, avoiding extremes of heat, cold, and other pot ential triggers for her seizures. She did say that at times headaches would sometimes be followed by seizures and she should address headaches with appropriate medications. She may be discharged home and follow up with Dr. Zee's clinic in 1 month. KATHERINE Voice ID: [id number] Report ID: [id number]
[2018-07-10] MEDS ORDERED: HOME MED 1 EA UNK (Cyanocobalamin (Vitamin B-12) [Vitamin B12] 1 TAB) PO SCH (21:00)
[2018-07-10] MEDS ORDERED: MAGNESIUM 400 MG PO SCH (21:00)
[2018-07-10] MEDS ORDERED: ESCITALOPRAM 20 MG PO SCH (21:00)
[2018-07-10] MEDS ORDERED: HOME MED 1 EA UNK (Losartan Potassium [Losartan Potassium] 100 MG) PO SCH (21:00)
[2018-07-10] MEDS ORDERED: CALCIUM CARBONATE 1200 MG PO SCH (21:00)
--- NOTE | 2018-07-11 04:16 | DS ---
Date of Discharge: 07/10/2018 Consultants: Dr. Zee with Neurology. Discharge Diagnoses: 1.Acute seizure disorder, tonic-clonic type. 2.Diabetes mellitus type 2, [id number]-[id number] with hyperglycemia. 3.Essential hypertension. 4.Hypotensive episode. 5.Overweight. BMI 29.5. 6.Nicotine dependence with cigarette smoking, counseled. Hospital Course: The patient is a 38-year-old female with past medical history of seizure with last seizure episode 2 weeks prior to admission when patient had multiple seizures. The patient states pr ior to then her last seizure episode was 4 years ago. She is not on any medications for it. She cam e in after her acute seizure episode while at work. She does see a neurologist in [place]. MRI of t he brain was done, which did not show any abnormalities. EEG was also done. The patient was started on loading dose of Keppra. She was placed on seizure precautions. Workup revealed normal WBC count . She did also complain of some chest pain, however, was associated with the seizure episode. Her c ardiac enzymes were negative. The patient does follow with Dr. Gasca for history of PVCs on the [facility] telemetry and she did not have any abnormalities. Her EKG showed normal sinus rhythm. The pat ient's chest x-ray, which was personally reviewed, did not show any acute abnormalities. The patient was then doing well. Did not have any further seizure episodes. No chest pain. She was evaluated by Dr. Zee with Neurology, who recommended the patient to be discharged home on Keppra and to vidal ve followup Keppra level at his office. The patient was then cleared for discharge and sent home in a stable condition. Activity: Seizure precautions. No driving, operating heavy machinery, heights, swimming. Diet: Diabetic diet. Followup: With primary care physician in 2 to 3 days. Follow up with neurologist, Dr. Zee in 2 weeks. Follow up with forest fire lookout, Dr. Gasca. The patient apparently has an appointment tomorro w. Return to ER for worsening condition. The patient may go back to work on 07/12/2018. Medications: As per medication reconciliation list. We will continue on Keppra 500 mg p.o. b.i.d. The patient told to avoid tramadol, which will lower the seizure threshold. The patient voiced under standing. Physical Examination: General: Awake, alert, oriented, no acute distress. CV: S1, S2. No murmurs. Respiratory: Moving air well bilaterally. Abdomen: Soft, nontender, nondistended. Positive bowel sounds. Extremities: No clubbing, cyanosis, edema. Neuro: Nonfocal. /JOSE Voice ID: [id number] Report ID: [id number]
== END 2018-07-10 15:25 | disposition home or self-care (01) ==
LOC: ER 11:17 → ERHOLD 13:16 → 2ND 16:23
PROVIDERS: ADMIT Family Medicine; ATTEND Hospitalist
DX: G40.409 Other generalized epilepsy and epileptic syndromes, not intractable, without status epilepticus (principal); E11.65 Type 2 diabetes mellitus with hyperglycemia; I10 Essential (primary) hypertension; I95.9 Hypotension, unspecified; E66.3 Overweight; Z68.29 Body mass index [BMI] 29.0-29.9, adult; F17.210 Nicotine dependence, cigarettes, uncomplicated; Z23 Encounter for immunization
CPT/HCPCS: 36415; 70553; 71045; 80048; 80053; 80076; 82962; 83735; 83880; 84484; 85025; 85610; 93005; 95816; 96365; 96375; 99285; A9577; G0008; G0009; G0378; J1953; J7030; Q2035

== ENCOUNTER 2018-07-30 19:11 | Observation (INO) | payer BC ==
--- OUTSIDE RECORDS SUMMARY | 2018-07-30 19:14 | XMS REPORT | Clinical Summary ---
:1980 Author Organization [facility] Address [address] [place] [address] Care Team Providers Name Role Phone Oswaldo Ahmadi MD Primary Care Provider Allergies No Known Allergies Medications Medication Sig Dispensed Refills Start Date End Date Status metFORMIN XR Take 500 mg by 0 03/15/2018 Active (GLUCOPHAGE-XR) 500 mouth. mg 24 hr tablet VITAMIN D2 50,000 Take 50,000 1 2018 Active unit capsule Units by mouth once a week. escitalopram Take 20 mg by 12 04/21/2018 Active (LEXAPRO) 10 MG mouth daily. tablet estradiol (CLIMARA) APPLY 1 PATCH 4 03/06/2018 Active 0.1 mg/24 hr TO SKIN WEEKLY. ALPRAZolam (XANAX) Take 0.5 mg by 0 02/21/2018 Active 0.5 MG tablet mouth. dextroamphetamine-a Take 10 mg by 0 03/15/2018 Active mphetamine mouth. (ADDERALL) 20 mg tablet estradiol (ESTRACE) Apply nightly 42.5 g 11 05/22/2018 05/22/2019 Active 0.01 % (0.1 for 2 weeks, mg/gram) vaginal then 2 times cream per week losartan (COZAAR) Take 100 mg by 1 05/30/2018 Active 100 MG tablet mouth daily. losartan-hydrochlor Take 1 tablet 0 06/18/2018 Discontinued othiazide (HYZAAR) by mouth. 100-12.5 [...] Gwendolyn Xavier, Post-operative state (Primary Dx) 06/22/2018 Surgery Urology Gwendolyn Xavier, PLACEMENT OF RETROPUBIC MIDURETHRAL SLING, CYSTO 06/22/2018 Anesthesia Event Urology Floresita Lora NP 06/22/2018 Hospital Encounter Urology Gwendolyn Xavier MD 06/21/2018 Telephone Urology Belinda Hinds MA 06/13/2018 Procedure visit Urology Gwendolyn Xavier, ZARINA (stress urinary MD incontinence, female) (Primary Dx) 06/12/2018 Telephone Urology Joya Juan LVN 06/06/2018 Telephone UrologGwendolyn Paiz MD 06/04/2018 Telephone UrologGwendolyn Paiz MD 05/28/2018 Telephone Urology Gwendolyn Xavier MD 05/23/2018 Telephone Urology Gwendolyn Xavier MD 05/22/2018 Office Visit Urology Gwendolyn Xavier, 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 Last Filed Vital Signs Vital Sign Reading [...] 06/22/2018 6:32 AM CDT Plan of Treatment Health Maintenance Due Date Last Done Comments MMR VACCINES (1 of 1 - Standard 1980 series) VARICELLA VACCINES (1 of 2 - 2-dose 1992 adolescent series) CERVICAL CANCER SCREENING 2000 INFLUENZA VACCINE 04/11/2018 HEPATITIS B VACCINES Aged Out No longer eligible based on patient's age to complete this topic IPV VACCINES Aged Out No longer eligible based on patient's age to complete this topic MENINGOCOCCAL VACCINE Aged Out No longer eligible based on patient's age to complete this topic Implants Implanted Type Area Data Analyst Device Shelf Model / Identifier Expiration Serial / Date Lot System Sling Mdurethrl Trnsvagnl Mesh Asmbly Advantage Fit - [id number] Urological N/A: BSC 03/26/2021 [id number] / Implanted: Qty: 1 on 06/22/2018 by Gwendolyn Xavier MD Implants or N/A UROLOGY/GYNECOL / Sets [id number] Procedures Procedure Name Priority Date/Time Associated Comments Diagnosis [id number] Routine 07/03/2018 11:41 Post-operative Results for this AM CDT state procedure are in the results section. POC URINALYSIS Routine 07/03/2018 11:41 Post-operative Results for this DIPSTICK AM CDT state procedure are in the results section. 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 [id number] Routine 05/22/2018 9:50 Mixed stress and Results for this AM CDT urge urinary procedure are in incontinence the results section. POC URINALYSIS Routine 05/22/2018 9:36 Mixed stress and Results for this DIPSTICK AM CDT urge urinary procedure are in incontinence the results section. after 07/29/2017 Results POC BLADDER SCAN/PVR (07/03/2018 11:41 AM CDT)Only the most recent of2 resultswithin the time period is included. Volume PVR 0ml Specimen Urine POC urinalysis dipstick (07/03/2018 11:41 AM CDT)Only the most recent of2 resultswithin the time [...] Negative Specimen Urine POC glucose (06/22/2018 6:54 AM CDT) POC glucose 116 (H) 65 - 99 mg/dL [facility] DEPARTMENT OF PATHOLOGY AND Comment: GENOMIC MEDICINE PENDING SALE TO [facility] Notified RN Meter ID: [id number] Glove Cleaner: Cayetano Levy Performing Organization Address City/State/Zipcode Phone Number [facility] DEPARTMENT OF PATHOLOGY AND [address] [place] [address] GENOMIC MEDICINE Type and screen (06/22/2018 6:15 AM CDT) ABO grouping B [facility] DEPARTMENT OF PATHOLOGY AND GENOMIC MEDICINE Rh type POS [facility] DEPARTMENT OF PATHOLOGY AND GENOMIC MEDICINE Antibody screen (gel) NEG [facility] DEPARTMENT OF PATHOLOGY AND GENOMIC MEDICINE Specimen Blood Performing Organization Address City/[facility]/Zipcode Phone Number [facility] DEPARTMENT OF PATHOLOGY AND [address] [place] [address] GENOMIC MEDICINE Microscopic Examination (06/13/2018 1:59 PM CDT)Only the most recent of2 resultswithin the time period is included. WBC, UA 0-5 0 - 5 /hpf [facility] RBC, UA 0-2 0 - 2 /hpf [facility] Epithelial cells (non renal) 0-10 0 - 10 /hpf [facility] Mucus, UA Present Not Estab. [facility] Bacteria, UA Few None seen/Few [facility] Narrative Performed At Performed at: - [facility] [id number] Certified Fraud Examiner: Hugo Stinson MD, Phone:[phone] Performing Organization Address [facility] Phone Number [facility] Urinalysis, automated with microscopy (06/13/2018 1:59 PM CDT)Only the most recent of2 resultswithin the time [...] was performed. Narrative Performed At Performed at: [facility] [employer] [facility] [place], [id number] Certified Fraud Examiner: Hugo Stinson MD, Phone:[phone] Performing Organization Address [facility]/Zipcode Phone Number [facility] Urine culture (06/13/2018 1:59 PM CDT)Only the most recent of2 resultswithin the time period is included. Urine culture No growth [facility] Specimen Urine Narrative Performed At Performed at: [facility] [place], [id number] Certified Fraud Examiner: Hugo Stinson MD, Phone:[phone] Performing Organization Address [facility] Phone Number [facility] PT and PTT (06/13/2018 1:56 PM CDT) INR 1.0 0.8 - 1.2 [facility] Comment: [...] Specimen Blood Narrative Performed At Performed at: [facility] [place], [id number] Certified Fraud Examiner: Hugo Stinson MD, Phone:[phone] Performing Organization Address [facility] Phone Number [facility] CBC with platelet and differential (06/13/2018 1:56 PM CDT) WBC 12.4 (H) 3.4 - 10.8 x10E3/uL [...] [facility] Specimen Blood Narrative Performed At Performed at:01 - [facility] [address] [place], [id number] Certified Fraud Examiner: Hugo Stinson MD, Phone:[phone] Performing Organization Address City/State/Zipcode Phone Number [facility] Comprehensive metabolic panel (06/13/2018 1:56 PM CDT) Glucose 146 (H) 65 - 99 mg/dL [facility] BUN, whole blood 13 6 - 20 mg/dL [facility] Creatinine 0.66 0.57 - 1.00 mg/dL [facility] EGFR Non-Afr. Namibian 112 >59 mL/min/1.73 [facility] EGFR 129 >59 [...] [facility] Specimen Blood Narrative Performed At Performed at:01 - [facility] [address] [place], [id number] Certified Fraud Examiner: Hugo Stinson MD, Phone:[phone] Performing Organization Address City/State/Zipcode Phone Number [facility] FL URETHROGRAM URO (06/13/2018 12:08 PM CDT)Uroflowmetery complex (F-P-F) (06/13 12:08 PM CDT)VPS intra abd complex (LPP) (06/13/2018 12:08 PM CDT)VPS intermed (FR, EMG, Pves-Pabd: pdet) (06/13/2018 12:08 PM CDT)after 07/29/2017 Insurance Payer Benefit Plan / Group Subscriber ID Type Phone Address BCBS BCBS CHOICE PPO/FEDERAL EMPL PPO xxxxxxxxxxxx PPO Advance Directives Patient has advance care planning documents on file. For more information, please contact:Price Harrison[address] [place] [address]
[2018-07-30 20:02] LABS: Absolute Lymphocytes (CBC) 4.3 K/uL (0.7-4.9); Absolute Monocytes 0.7 K/uL (0.1-1.3); Absolute Neutrophil 9.1 K/uL (1.8-8.0); Basophils % 0.7 % (0-1.3); Eosinophils % 1.1 % (0-4.4); Hematocrit 42.7 % (36.0-45.0); Lymphocytes % 29.8 % (15.3-44.8); MCH 30.4 pg (27.0-35.0); MCV 90.2 fL (80-100); MPV 8.2 fL (7.6-11.3); Monocytes % 4.8 % (3.3-12.3); RBC Red Blood Cell Count 4.73 M/uL (3.86-4.86)
[2018-07-30 20:24] LABS: Protime INR 0.96
--- NOTE | 2018-07-30 20:25 | RAD REPORT ---
EXAM DESCRIPTION: RAD - Chest Single View - 07/30/2018 8:14 pm CLINICAL HISTORY: CHEST PAIN Chest pain. COMPARISON: Chest Single View dated 07/09/2018 FINDINGS: Portable technique limits examination quality. The lungs are grossly clear. The heart is normal in size. No displaced fractures. IMPRESSION: No acute intrathoracic process suspected.
[2018-07-30 20:33] LABS: ALT/SGPT 27 U/L (12-78); AST/SGOT 17 U/L (15-37); Alkaline Phosphatase 97 U/L (45-117); BUN Blood Urea Nitrogen 11 mg/dL (7-18); Bicarbonate 24 mmol/L (21-32); Bilirubin Direct < 0.1 mg/dL (0-0.2); Bilirubin Total 0.3 mg/dL (0.2-1.0); Glucose Level 92 mg/dL (74-106); Magnesium 2.2 mg/dL (1.8-2.4); NT PRO-BNP 55 pg/mL (<125); Potassium 3.3 mmol/L (3.5-5.1); Protein, Total 7.5 g/dL (6.4-8.2); Sodium Level 139 mmol/L (136-145); Troponin (Emerg Dept Use Only) < 0.02 ng/mL (0.0-0.045)
[2018-07-30] MEDS ORDERED: KETOROLAC 30 MG/ML INJ ONE (20:51)
[2018-07-30 21:37] LABS: Urine Blood 2+ (NEG); Urine Glucose NEGATIVE (NEG); Urine Protein NEGATIVE (NEG); Urine pH 6.5 (5.0-7.0)
--- NOTE | 2018-07-30 23:06 | EDPHYS ---
Physician Documentation [facility] Name: Sofia Tejada Age: 38 yrs Sex: Female : 1980 Arrival Date: 07/30/2018 Time: 19:14 Bed 25 Private MD: ED Physician Joss Nicholson HPI: 07/30 23:50 This 38 yrs old Female presents to ER via Ambulatory with complaints of Chest tw4 Pain. 23:50 The patient or guardian reports chest pain that is located primarily in the anterior tw4 chest wall, left. The pain does not radiate. Associated signs and symptoms: Pertinent positives: syncope. The chest pain is described as sharp. Duration: The patient or guardian reports multiple episodes, that wax and wane, with no pattern, the episodes last approximately 5 minute(s). Severity of pain: At its worst the pain was moderate in the emergency department the pain is unchanged. The patient has not experienced similar symptoms in the past. 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 - Social history:: Smoking status: Patient uses tobacco products, smokes one-half pack cigarettes per day. - Ebola Screening: : Patient denies travel to an Ebola-affected area in the 21 days before illness onset. ROS: 23:50 Constitutional: Negative for fever, chills, and weight loss, Eyes: Negative for injury, tw4 pain, redness, and discharge, Respiratory: Negative for shortness of breath, cough, wheezing, and pleuritic chest pain, Abdomen/GI: Negative for abdominal pain, nausea, vomiting, diarrhea, and constipation, Back: Negative for injury and pain, MS/Extremity: Negative for injury and deformity, Skin: Negative for injury, rash, and discoloration. 23:50 Neuro: Negative for headache, weakness, numbness, tingling, and seizure. 23:50 Cardiovascular: Positive for chest pain, of the anterior aspect of left upper chest. Exam: 23:50 Constitutional: This is a well developed, well nourished patient who is awake, alert, tw4 and in no acute distress. Head/Face: Normocephalic, atraumatic. Chest/axilla: Normal chest wall appearance and motion. Nontender with no deformity. No lesions are appreciated. Cardiovascular: Regular rate and rhythm with a normal S1 and S2. No gallops, murmurs, or rubs. Normal PMI, no JVD. No pulse deficits. Respiratory: Lungs have equal breath sounds bilaterally, clear to auscultation and percussion. No rales, rhonchi or wheezes noted. No increased work of breathing, no retractions or nasal flaring. Abdomen/GI: Soft, non-tender, with normal bowel sounds. No distension or tympany. No guarding or rebound. No evidence of tenderness throughout. MS/ Extremity: Pulses equal, no cyanosis. Neurovascular intact. Full, normal range of motion. Neuro: Awake and alert, GCS 15, oriented to person, place, time, and situation. Cranial nerves II-XII grossly intact. Motor strength 5/5 in all extremities. Sensory grossly intact. Cerebellar exam normal. Normal gait. Vital Signs: 19:18 BP 172 / 96; Pulse 68; Resp 18; Temp 97.6; Pulse Ox 100% on R/A; Weight 82.1 kg (R); aj1 Height 5 ft. 5 in. (165.10 cm) (R); Pain 7/10; 19:48 BP 145 / 99; Pulse 69; Resp 18; Pulse Ox 98% on R/A; Pain 4/10; mg2 21:59 BP 139 / 85; Pulse 62; Resp 18; mg2 07/31 00:21 BP 143 / 94; Pulse 61; Resp 18; Pulse Ox 99% on R/A; Pain 0/10; mg2 07/30 19:18 Body Mass Index 30.12 (82.10 kg, 165.10 cm) aj MDM: 07/30 19:50 Patient medically screened. tw4 23:50 Differential diagnosis: acute pericarditis, coronary artery disease chest wall pain, tw4 gastritis, pulmonary embolus, stable angina. HEART Score: History: Slightly Suspicious (0), ECG: Normal (0), Age: < or = 45 years (0), Risk Factors: No Risk Factors Known (0), Troponin: < or = 1 x Normal Limit (0), Total Score =. Data reviewed: vital signs, nurses notes. 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 Test interpretation: by ED physician or midlevel provider: ECG. Counseling: I had a detailed discussion with the patient and/or guardian regarding: the historical points, exam findings, and any diagnostic results supporting the discharge/admit diagnosis, lab results, radiology results. Physician consultation: Ollie Edwards MD regarding admission, patient's condition, need to come to ED to see patient, need to evaluate the patient as soon as possible, and will see patient in ED. Admission orders: after a detailed discussion of the patient's condition and case, the admit orders are written by me. 07/30 19:38 Order name: Basic Metabolic Panel mg2 07/30 19:38 Order name: CBC with Diff mg2 07/30 19:38 Order name: LFT's mg2 07/30 19:38 Order name: Magnesium mg2 07/30 19:38 Order name: NT PRO-BNP mg2 07/30 19:38 Order name: PT-INR mg2 07/30 19:38 Order name: Troponin (emerg Dept Use Only) mg2 07/30 20:08 Order name: Protime (+INR); Complete Time: 22:14 EDMS 07/30 22:14 Interpretation: Within normal limits. tw4 07/30 20:14 Order name: CBC with Automated Diff; Complete Time: 00:41 EDMS 07/30 20:34 Order name: Basic Metabolic Panel; Complete Time: 22:13 EDMS 07/30 22:13 Interpretation: K 3.3. tw4 07/30 20:34 Order name: Liver (Hepatic) Function; Complete Time: 00:41 EDMS 07/30 20:34 Order name: Troponin (Emerg Dept Use Only); Complete Time: 00:41 EDMS 07/30 20:34 Order name: NT PRO-BNP; Complete Time: 00:41 EDMS 07/30 20:34 Order name: Magnesium; Complete Time: 00:41 EDMS 07/30 19:38 Order name: XRAY Chest (1 view) mg2 07/30 19:38 Order name: EKG; Complete Time: 19:51 mg2 07/30 19:38 Order name: Cardiac monitoring; Complete Time: 19:43 mg2 07/30 19:38 Order name: EKG - Nurse/Tech; Complete Time: 19:43 mg2 07/30 19:38 Order name: IV Saline Lock; Complete Time: 19:44 mg2 07/30 19:38 Order name: Labs collected and sent; Complete Time: 19:44 mg2 07/30 19:38 Order name: O2 Per Protocol; Complete Time: 19:44 mg2 07/30 19:38 Order name: O2 Sat Monitoring; Complete Time: 19:44 mg2 07/30 20:25 Order name: RAD; Complete Time: 00:41 EDMS 07/30 21:10 Order name: Urine Dipstick--Ancillary (enter results) ar5 07/30 21:37 Order name: Urine Dipstick-Ancillary; Complete Time: 22:14 EDMS 07/30 22:14 Interpretation: Normal except: UBLD 2+. tw4 07/30 22:48 Order name: CT Chest For PE Angio tw4 Administered Medications: 20:48 Drug: TORadol 30 mg Route: IVP; Site: left forearm; mg2 22:00 Follow up: Response: No adverse reaction; Marked relief of symptoms mg2 Disposition: 07/30/18 23:05 Hospitalization ordered by Ollie Edwards for Observation. Preliminary diagnosis are Chest pain, unspecified, NEAR SYNCOPE. - Bed requested for Telemetry/MedSurg (observation). - Status is Observation. mg2 - Condition is Stable. - Problem is new. - Symptoms are unchanged. UTI on Admission? No Signatures: Dispatcher [employer] EDRI Jessica Meyers RN RN aj1 Mya Cornejo RN RN Joss Nicholson MD MD tw4 Oneal Sharma RN RN mg2 Corrections: (The following items were deleted from the chart) 07/31 00:43 07/30 23:05 Hospitalization Ordered by Ollie Edwards MD for Observation. Preliminary cg diagnosis is Chest pain, unspecified; NEAR SYNCOPE. Bed requested for Telemetry/MedSurg (observation). Status is Observation. Condition is Stable. Problem is new. Symptoms are unchanged. UTI on Admission? No. tw4 07/31 01:17 00:43 07/30/2018 23:05 Hospitalization Ordered by Ollie Edwards MD for Observation. mg2 Preliminary diagnosis is Chest pain, unspecified; NEAR SYNCOPE. Bed requested for Telemetry/MedSurg (observation). Status is Observation. Condition is Stable. Problem is new. Symptoms are unchanged. UTI on Admission? No. cg
--- NOTE | 2018-07-30 23:06 | ER ---
Nurse's Notes [facility] Name: Sofia Tejada Age: 38 yrs Sex: Female : 1980 Arrival Date: 07/30/2018 Time: 19:14 Bed 25 Private MD: Diagnosis: Chest pain, unspecified;NEAR SYNCOPE Presentation: 07/30 19:14 Presenting complaint: Patient states: "My blood pressure has been high pretty much all aj1 day, chest hurting, dizzy. I have a vent monitor on too" Patient states that she is wearing the monitor because she had a weak pulse and it made her have seizures. Reports left sided chest pain that she describes as stabbing. Does not radiate. Transition of care: patient was not received from another setting of care. Onset of symptoms was July 30, 2018 at 06:00. Risk Assessment: Do you want to hurt yourself or someone else? Patient reports no desire to harm self or others. Initial Sepsis Screen: Does the patient meet any 2 criteria? No. Patient's initial sepsis screen is negative. Does the patient have a suspected source of infection? No. Patient's initial sepsis screen is negative. Care prior to arrival: None. 19:14 Method Of Arrival: Ambulatory aj1 19:14 Acuity: PEÑA 3 aj1 Triage Assessment: 19:18 General: Appears in no apparent distress. comfortable, Behavior is calm, cooperative, aj1 appropriate for age. Pain: Complains of pain in anterior aspect of left upper chest Pain does not radiate. Pain currently is 7 out of 10 on a pain scale. Neuro: Level of Consciousness is awake, alert, obeys commands. Cardiovascular: Patient's skin is warm and dry. Respiratory: Airway is patent Respiratory effort is even, unlabored, Respiratory pattern is regular, symmetrical. 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 - Social history:: Smoking status: Patient uses tobacco products, smokes one-half pack cigarettes per day. - Ebola Screening: : Patient denies travel to an Ebola-affected area in the 21 days before illness onset. Screenin:47 Abuse screen: Denies threats or abuse. Denies injuries from another. Nutritional mg2 screening: No deficits noted. Tuberculosis screening: No symptoms or risk factors identified. Fall Risk IV access (20 points). Assessment: 19:45 General: Appears in no apparent distress. comfortable. Pain: Complains of pain in mg2 anterior aspect of left upper chest Pain does not radiate. Pain currently is 5 out of 10 on a pain scale. Quality of pain is described as aching, Pain began gradually, since morning Is intermittent. Neuro: Level of Consciousness is awake, alert, obeys commands, Oriented to person, place, time, situation. Cardiovascular: Capillary refill < 3 seconds Patient's skin is warm and dry. Respiratory: Airway is patent Respiratory effort is even, unlabored, Respiratory pattern is regular, symmetrical. GI: Reports nausea. : No signs and/or symptoms were reported regarding the genitourinary system. EENT: No signs and/or symptoms were reported regarding the EENT system. Derm: Skin is intact, is healthy with good turgor, Skin is pink, warm \\T\\ dry. normal. Musculoskeletal: No signs and/or symptoms reported regarding the musculoskeletal system. Vital Signs: 19:18 BP 172 / 96; Pulse 68; Resp 18; Temp 97.6; Pulse Ox 100% on R/A; Weight 82.1 kg (R); aj1 Height 5 ft. 5 in. (165.10 cm) (R); Pain 7/10; 19:48 BP 145 / 99; Pulse 69; Resp 18; Pulse Ox 98% on R/A; Pain 4/10; mg2 21:59 BP 139 / 85; Pulse 62; Resp 18; mg2 07/31 00:21 BP 143 / 94; Pulse 61; Resp 18; Pulse Ox 99% on R/A; Pain 0/10; mg2 07/30 19:18 Body Mass Index 30.12 (82.10 kg, 165.10 cm) aj1 ED Course: 07/30 19:14 Patient arrived in ED. aj1 19:17 Triage completed. aj1 19:23 Oneal Sharma, RN is Primary Nurse. mg2 19:45 Arm band placed on. mg2 19:47 No provider procedures requiring assistance completed. Inserted saline lock: 22 gauge mg2 in left forearm, using aseptic technique. Blood collected. Patient maintains SpO2 saturation greater than 95% on room air. 19:50 Joss Nicholson MD is Attending Physician. tw4 22:00 Patient has correct armband on for positive identification. Placed in gown. Bed in low mg2 position. Call light in reach. Side rails up X 1. coder on. Pulse ox on. NIBP on. 22:57 Patient moved to ND via wheelchair. 2 23:00 CT completed. Patient tolerated procedure well. Patient moved back from ND. 2 23:04 Ollie Edwards MD is Hospitalizing Provider. [facility] 07/31 01:08 Patient admitted, IV remains in place. mg2 Administered Medications: 07/30 20:48 Drug: TORadol 30 mg Route: IVP; Site: left forearm; mg2 22:00 Follow up: Response: No adverse reaction; Marked relief of symptoms mg2 Outcome: 23:05 Decision to Hospitalize by Provider. [facility] 07/31 01:07 Admitted to Tele accompanied by tech, via wheelchair, room 430, with chart, Report mg2 called to TY Lynn Condition: stable Instructed on the need for admit, Demonstrated understanding of instructions. 01:17 Patient left the ED. mg2 Signatures: Jessica Meyers, TY RN aj1 Tamiko Brown 2 Joss Nicholson MD MD tw4 Oneal Sharma RN RN mg2
[2018-07-31] MEDS ORDERED: MORPHINE 4 MG/ML SYR IV PRN (00:37)
[2018-07-31] MEDS ORDERED: ALPRAZOLAM 0.25 MG TABLET PO PRN (00:37)
[2018-07-31] MEDS ORDERED: ACETAMINOPHEN 500 MG TAB PO PRN (00:37)
[2018-07-31] MEDS ORDERED: ALPRAZOLAM 0.5 MG TABLET PO PRN (01:14)
[2018-07-31] MEDS ORDERED: ESCITALOPRAM 20 MG TAB PO SCH (01:14)
[2018-07-31] MEDS ORDERED: LOSARTAN POTASSIUM 50 MG TABLET PO SCH (02:00)
[2018-07-31 02:39] LABS: Urine Appearance CLEAR; Urine Bilirubin NEGATIVE (NEG); Urine Blood 3+ (NEG); Urine Color YELLOW; Urine Glucose NEGATIVE (NEG); Urine Protein NEGATIVE (NEG); Urine Specific Gravity >=1.030 (1.005-1.030)
[2018-07-31 02:50] LABS: Urine Microscopic Reflex ORDER UMIC
[2018-07-31 03:09] LABS: Urine Bacteria <20 /HPF (<20); Urine Culture Reflex Order NOT NEEDED
[2018-07-31] MEDS ORDERED: D50W 25 GM/50 ML SYRINGE IV PRN (04:17)
[2018-07-31] MEDS ORDERED: GLUCAGON 1 MG/VIAL IM PRN (04:17)
[2018-07-31 04:46] VITALS: O2SAT 100; BMI 30.1
[2018-07-31 04:46] LABS: Thyroid Stimulating Hormone 1.37 uIU/mL (0.360-3.740)
[2018-07-31] MEDS: INSULIN -REGULAR HUMAN 50 UNIT/0.5 ML ML SQ SCH ×3 (06:00→17:23)
[2018-07-31] MEDS ORDERED: REGADENOSON 0.4 MG/5 ML SYR IV ONE (07:42)
--- NOTE | 2018-07-31 07:51 | P.HP ---
Certification for Inpatient Patient admitted to: Observation With expected LOS: <2 Midnights Patient will require the following post-hospital care: None Practitioner: I am a practitioner with admitting privileges, knowledge of patient current condition, hospital course, and medical plan of care. Services: Services provided to patient in accordance with Admission requirements found in Title 42 Section 412.3 of the Code of Federal Regulations Patient History Date of Service: 07/31/18 Reason for admission: Chest pain rule out acute coronary syndrome History of Present Illness: Patient is a 38-year-old female came to the hospital with chest pain. Pain was mainly in the sternal region. Patient was recently in the hospital and had an event monitor placed. Patient states that she has had chest pain on an off along with some palpitations. Her blood pressure has also been very labile. Yesterday she was having chest pain all day and her blood pressure was 160-170s/ 100-110s. Her family member who works at a cardiology office advised her to go into the emergency room. She was reluctant to go in because she states she was discharged last time with a anything being done. She presents with her blood pressure being 160/100. Her heart rates in the 60s. She appears slightly anxious as well. She has multiple medical issues and at this time will go ahead and admit her to the hospital for observation once again. Will go ahead and do further testing to evaluate her cardiac status. She does have any event monitor will have Cardiology see her to evaluate this as well. She does appear anxious and a could be related to anxiety however with her blood pressure being significantly elevated for a prolonged period it may be best to more definitively evaluate her at this time. Allergies No Known Allergies Allergy (Unverified 07/31/18 02:32) Home Medications: ALPRAZolam [Xanax] 0.5 mg PO BEDTIME 07/31/18 Buspirone HCl [Buspar] 5 mg PO TID PRN 07/31/18 Ca/D3/Mag Ox/Zinc/Junior Network Administrator/Kapil/Bor [Calcium 600+D3 Plus Caplet] 2 each PO BEDTIME Escitalopram [Lexapro] 20 mg PO BEDTIME 07/31/18 Estradiol [Climara] 1 each TD EVERY 7TH DAY 07/31/18 Losartan Potassium [Cozaar] 100 mg PO BEDTIME 07/31/18 Vit D3/Folic Acid/B2/B6/B12 [Folgard Tablet] 1 each PO EVERY 7TH DAY 07/31/18 - Past Medical/Surgical History Has patient received pneumonia vaccine in the past: No Diabetic: Yes -: seizure -: NIDDM -: Tobacco abuse -: cholecystectomy -: tonsillectomy -: hysterectomy - Family History Mother Medical History: Lung disease, Other (see notes) Notes: High cholesterol; COPD - Social History Smoking Status: Current every day smoker Alcohol use: Yes CD- Drugs: No Caffeine use: Yes Place of Residence: Home Review of Systems 10-point ROS is otherwise unremarkable Physical Examination - Vital Signs Temperature: 98.6 F Blood Pressure: 111/59 Pulse: 60 Respirations: 18 Pulse Ox (%): 100 - Physical Exam General: Alert, In no apparent distress, Oriented x3 HEENT: Atraumatic, PERRLA, Mucous membr. moist/pink, EOMI, Sclerae nonicteric Neck: Supple, 2+ carotid pulse no bruit, No LAD, Without JVD or thyroid abnormality Respiratory: Clear to auscultation bilaterally, Normal air movement Cardiovascular: Regular rate/rhythm, Normal S1 S2, No murmurs Gastrointestinal: Normal bowel sounds, Soft and benign, Non-distended, No tenderness Musculoskeletal: No clubbing, No swelling, No tenderness Integumentary: No rashes Neurological: Normal gait, Normal speech, Normal strength at 5/5 x4 extr, Normal tone, Sensation intact, Cranial nerves 3-12 intact, Normal affect Lymphatics: No axilla or inguinal lymphadenopathy - Studies Laboratory Data (last 24 hrs) 07/30/18 19:35: PT 11.3, INR 0.96 07/30/18 19:35: WBC 14.3 H, Hgb 14.4, Hct 42.7, Plt Count 222 07/30/18 19:35: Sodium 139, Potassium 3.3 L, BUN 11, Creatinine 0.70, Glucose 92 , Magnesium 2.2, Total Bilirubin 0.3, AST 17, ALT 27, Alkaline Phosphatase 97 Assessment & Plan - Problems (Diagnosis) (1) Chest pain, rule out acute myocardial infarction Current Visit: Yes Status: Acute (2) Malignant hypertension Current Visit: Yes Status: Acute (3) Tobacco abuse Current Visit: Yes Status: Acute (4) Hypertension Onset Date: 07/10/18 Current Visit: No Status: Acute (5) Type 2 diabetes mellitus Onset Date: 07/10/18 Current Visit: No Status: Acute - Plan 1. Serial troponins and EKG 2. Cardiology consultation 3. Echocardiogram and stress test 4. Anti-platelet therapy, anti coagulation, beta-renny, statin, and O2 as needed 5. Anxiolytic 6. Nitro p.r.n. Discharge Plan: Home Plan to discharge in: 24 Hours - Advance Directives Does patient have a Living Will: No Does patient have a Durable POA for Healthcare: No - Code Status/Comfort Care Code Status Assessed: Yes Code Status: Full Code Critical Care: No Time Spent Managing PTS Care (In Minutes): 50
--- NOTE | 2018-07-31 08:25 | RAD REPORT ---
EXAM DESCRIPTION: CT - Chest For Pe Angio - 07/31/2018 6:26 am CLINICAL HISTORY: Chest pain. CHEST PAIN COMPARISON: No comparisons TECHNIQUE: CT angiogram of the pulmonary arteries was performed with MIP. All CT scans are performed using dose optimization technique as appropriate and may include automated exposure control or mA/KV adjustment according to patient size. FINDINGS: No evidence of pulmonary thromboembolism. No acute aortic finding demonstrated. The lungs are clear. No significant pericardial or pleural fluid. No concerning bony finding. Cholecystectomy noted. IMPRESSION: No evidence of pulmonary thromboembolism. No acute lung findings.
[2018-07-31] MEDS ORDERED: ENOXAPARIN 40 MG/0.4 ML SQ SCH (09:00)
[2018-07-31] MEDS ORDERED: ASPIRIN EC 81 MG TAB PO SCH (09:00)
[2018-07-31] MEDS ORDERED: METOPROLOL TAR 50 MG TAB PO SCH (09:00)
--- NOTE | 2018-07-31 09:26 | RAD REPORT ---
EXAM DESCRIPTION: NM - Rest Stress Cardiac Imaging - 07/31/2018 9:15 am CLINICAL HISTORY: CP Chest pain. COMPARISON: No comparisons TECHNIQUE: The patient was administered approximately 10mCi of Tc 99m Sestamibi prior to resting SPE CT imaging of the heart. The patient was then administered approximately 30 mCi of Tc 99m Sestamibi f ollowing exercise or pharmacologic stress. Multiplanar SPECT images were reviewed. FINDINGS: No stress induced ischemic defect is seen to suggest stress induced ischemia. No fixed def ect is seen to suggest hibernating myocardium or scarred myocardium. The end diastolic volume is 85 ml, the end systolic volume is 37 ml, and the ejection fraction is 56 %. IMPRESSION: No stress induced ischemia.
--- NOTE | 2018-07-31 09:36 | EKG ---
Test Date: 2018-07-30 Test Time: 19:27:19 Size Cutter: ELSY MEASUREMENT RESULTS: Intervals: Rate: 65 CA: 144 QRSD: 78 QT: 422 QTc: 438 Banner: P: 60 CA: 144 QRS: 24 T: 29 INTERPRETIVE STATEMENTS: Normal sinus rhythm Normal ECG Compared to ECG 07/09/2018 11:12:13 No significant changes Electronically Signed On 07-31-18 09:35:22 VARNISH FINISHER by Aron Mendez
--- NOTE | 2018-07-31 11:18 | TREADPHA ---
DX: CHEST PAIN Date of Study: 07/31/2018 Ht: 5 5 Wt: 181 lb 0 oz Consulting Physician: MARIE MEDICATIONS: TYLENOL, ASPIRIN, XANAX, DEXTROSE, LOVENOX, LEXAPRO, LOVENOX, NOVOLIN-R, COZAAR, LOPRESSOR HISTORY: 38 YEAR OLD FEMALE WITH CHEST PAIN AND NEAR SYNCOPE. PHYSICIAL EXAMINATION: RESTING B.P.: 123/95 RESTING H.R.: 56 RESTING EKG: NORMAL PROTOCOL: LEXISCAN EXERCISE TIME: 3:30 B.P. AT PEAK STRESS: 140/92 IMPRESSION: LEXISCAN INJECTED. CARDIOLITE INJECTED PER PROTOCOL. SEE NUCLEAR MEDICINE REPORT. NO SUPRAVENTRICULAR TACHYCARDIA. NO VENTRICULAR TACHYCARDIA. NO PREMATURE VENTRICULAR COMPLEXES. NO PREMATURE ATRIAL COMPLEXES. NO REPORT OF CHEST PAIN DURING STRESS TEST.
[2018-07-31 14:36] VITALS: BP 126/66; TEMP 98.1
--- NOTE | 2018-07-31 16:30 | P.SSS ---
Patient History Date of Service: 07/31/18 Reason for admission: Chest pain rule out acute coronary syndrome History of Present Illness: Patient is a 38-year-old female came to the hospital with chest pain. Pain was mainly in the sternal region. Patient was recently in the hospital and had an event monitor placed. Patient states that she has had chest pain on an off along with some palpitations. Her blood pressure has also been very labile. Yesterday she was having chest pain all day and her blood pressure was 160-170s/ 100-110s. Her family member who works at a cardiology office advised her to go into the emergency room. She was reluctant to go in because she states she was discharged last time with a anything being done. She presents with her blood pressure being 160/100. Her heart rates in the 60s. She appears slightly anxious as well. She has multiple medical issues and at this time will go ahead and admit her to the hospital for observation once again. Will go ahead and do further testing to evaluate her cardiac status. She does have any event monitor will have Cardiology see her to evaluate this as well. She does appear anxious and a could be related to anxiety however with her blood pressure being significantly elevated for a prolonged period it may be best to more definitively evaluate her at this time. Allergies No Known Allergies Allergy (Unverified 07/31/18 02:32) Home Medications: ALPRAZolam [Xanax*] 0.5 mg PO BEDTIME 07/31/18 Buspirone HCl [Buspar*] 5 mg PO TID PRN 07/31/18 Ca/D3/Mag Ox/Zinc/Cell Stripper/Kapil/Bor [Calcium 600-D3 Plus Caplet] 2 each PO BEDTIME Escitalopram [Lexapro*] 20 mg PO BEDTIME 07/31/18 Estradiol [Climara*] 1 each TD EVERY 7TH DAY 07/31/18 Losartan Potassium [Cozaar] 100 mg PO BEDTIME 07/31/18 Vit D3/Folic Acid/B2/B6/B12 [Folgard Tablet] 1 each PO EVERY 7TH DAY 07/31/18 - Past Medical/Surgical History Has patient received pneumonia vaccine in the past: No Diabetic: Yes -: seizure -: NIDDM -: Tobacco abuse -: cholecystectomy -: tonsillectomy -: hysterectomy -: bladder lining - Family History Mother -: Lung disease, Other (see notes) Notes: High cholesterol; COPD - Social History Smoking Status: Current every day smoker Alcohol use: Yes CD- Drugs: No Caffeine use: Yes Place of Residence: Home Review of Systems Unremarkable Physical Examination - Vital Signs Temperature: 98.1 F Blood Pressure: 126/66 Pulse: 53 Respirations: 18 Pulse Ox (%): 99 - Physical Exam General: Alert, In no apparent distress, Oriented x3 HEENT: Atraumatic, PERRLA, Mucous membr. moist/pink, EOMI, Sclerae nonicteric Neck: Supple, 2+ carotid pulse no bruit, No LAD, Without JVD or thyroid abnormality Respiratory: Clear to auscultation bilaterally, Normal air movement Cardiovascular: Regular rate/rhythm, Normal S1 S2 Gastrointestinal: Normal bowel sounds, No tenderness Musculoskeletal: No tenderness Integumentary: No rashes Neurological: Normal gait, Normal speech, Normal strength at 5/5 x4 extr, Normal tone, Normal affect Lymphatics: No axilla or inguinal lymphadenopathy - Studies Laboratory Data (last 24 hrs) 07/30/18 19:35: PT 11.3, INR 0.96 07/30/18 19:35: WBC 14.3 H, Hgb 14.4, Hct 42.7, Plt Count 222 07/30/18 19:35: Sodium 139, Potassium 3.3 L, BUN 11, Creatinine 0.70, Glucose 92 , Magnesium 2.2, Total Bilirubin 0.3, AST 17, ALT 27, Alkaline Phosphatase 97 Treatment Summary: Patient was admitted for chest pain. Cardiology was consulted, a stress test was done, which was normal. Upon admission, her blood pressure was elevated. Blood pressures normalized over the course of stay. No new medications added. She was cleared for discharge from cardiology point of view. At the time of my exam/time of discharge, patient was alert and oriented x3, hemodynamically stable and her chest pain and symptoms had resolved. Her symptoms were explained, all questions were answered and patient was discharged in a stable manner. She was instructed to follow up with outpatient with her primary care physician in 1 week. - Disposition Discharge Date: 07/31/18 Disposition: ROUTINE DISCHARGE Condition: GOOD Consultations: Cardiology, Dr. Mendez Patient Discharge Instructions: Please follow up with the primary care physician in 1 week. Diet: Regular Activity: Ad domingo Physician Review: Patient Assessed, Agree with Above Assessment and Plan Time Spent Managing Pts Care (In Minutes): 45
--- NOTE | 2018-08-06 08:30 | CON ---
Date of Consultation: 07/31/2018 Reason For Consultation: Chest pain. History Of Present Illness: Ms. Tejada is a 38-year-old young woman, a white, has a history of hyperte nsion, anxiety and depression. Has a history of diabetes and seizure. She sees Dr. Ahmadi. I saw her in the office recently for chest pain, when she had a negative echocardiogram. She comes in with sharp chest pain, stabbing, left-sided pinpoint radiating to the left back. No nausea, vomiting, di aphoresis, PND, orthopnea, pedal edema, palpitation, or syncope. Had a white count of 14,000, potass ium 3.3, otherwise normal CPKs, MBs, troponin, chest x-ray, and EKG. Allergies: NONE. Review of Systems: Negative. Social History: Negative. Family History: Negative. Medications: At home include Cozaar. She also takes Xanax, BuSpar, Lexapro, and estradiol. Physical Examination: Vital Signs: Stable. Afebrile. HEENT: Negative. Neck: Supple no bruit. Chest: Clear. Cardiac: Exam revealed a regular rhythm and rate. No murmurs, gallops, or rubs. Abdomen: Benign. Extremities: Revealed no clubbing, cyanosis, or edema. Diagnostic Data: As stated earlier. Impression And Plan: 1.Atypical chest pain, most likely pleuritic. 2.Elevated white count and low potassium, certainly may explain a pleurisy-type pain. 3.Anxiety and depression. 4.History of hypertension, well controlled. 5.Diabetes, on diet. 6.Seizure. I have been hesitant to get a stress Cardiolite on Ms. Tejada done because of her young age, but I thin k a stress Cardiolite was already ordered and I will see what that shows prior to making final decisi ons. My suggestion for Ms. Tejada is to get off all her medication and we will start from scratch. So me of her medication may be causing her to have some of her symptoms. GUDELIA/MODL Voice ID: [id number] Report ID: [id number]
== END 2018-07-31 18:34 | disposition home or self-care (01) ==
LOC: ER 19:11 → 4TH 07-31 00:59
PROVIDERS: ADMIT Hospitalist; ATTEND Hospitalist
DX: R07.9 Chest pain, unspecified (principal); I10 Essential (primary) hypertension; E11.9 Type 2 diabetes mellitus without complications; F41.8 Other specified anxiety disorders; F17.210 Nicotine dependence, cigarettes, uncomplicated
CPT/HCPCS: 36415; 71045; 71275; 78452; 80048; 80061; 80076; 81003; 81015; 82533; 82962; 83735; 83880; 84439; 84443; 84484; 85025; 85610; 93005; 93017; 96374; 99285; A9500; G0378; J1650; J2785; Q9967

== ENCOUNTER → 2023-09-19 | Emergency (ER) | payer BC ==
--- NOTE | 2023-09-19 13:08 | EDPHYS ---
Physician Documentation [facility] Name: Sofia Tejada Age: 43 yrs Sex: Female : 1980 Arrival Date: 09/19/2023 Time: 11:45 Bed 9 Private MD: ED Physician Vani Anne HPI: 09/19 13:22 This 43 yrs old Female presents to ER via Ambulatory with complaints of High gb1 Blood Pressure, Dizziness, Weakness. 13:22 The patient has been recently seen by a physician: yesterday. 43-year-old gb1 female presents with high blood pressure and feeling dizziness and weak. She was recently experiencing similar symptoms after a near syncopal episode yesterday and was evaluated in the emergency department with a negative workup and discharged home to follow-up. 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 She denies any fall or head injury. Patient denies any chest pain or shortness of breath or any sudden onset headache.. Historical: - Allergies: 11:58 No Known Allergies; iw - PMHx: 11:58 Diabetes - NIDDM; Hypertension; Seizures; iw 12:09 "stroke'like symptoms in December; ll1 - PSHx: 12:09 hysterectomy; Appendectomy; Cholecystectomy; ll1 - Immunization history:: Adult Immunizations up to date. - Social history:: Smoking status: Reported history of juuling and/or vaping. Patient denies any tobacco usage or history of. ROS: 13:22 All other systems are negative, gb1 Exam: 13:22 Constitutional: This is a well developed, well nourished patient who is awake, alert, gb1 and in no acute distress. Head/Face: Normocephalic, atraumatic. Eyes: Pupils equal round and reactive to light, extra-ocular motions intact. Lids and lashes normal. Conjunctiva and sclera are non-icteric and not injected. Cornea within normal limits. Periorbital areas with no swelling, redness, or edema. ENT: Nares patent. No nasal discharge, no septal abnormalities noted. Tympanic membranes are normal and external auditory canals are clear. Oropharynx with no redness, swelling, or masses, exudates, or evidence of obstruction, uvula midline. Mucous membranes moist. Neck: Trachea midline, no thyromegaly or masses palpated, and no cervical lymphadenopathy. Supple, full range of motion without nuchal rigidity, or vertebral point tenderness. No Meningismus. Chest/axilla: Normal chest wall appearance and motion. Nontender with no deformity. No lesions are appreciated. Cardiovascular: Regular rate and rhythm with a normal S1 and S2. No gallops, murmurs, or rubs. Normal PMI, no JVD. No pulse deficits. Respiratory: Lungs have equal breath sounds bilaterally, clear to auscultation and percussion. No rales, rhonchi or wheezes noted. No increased work of breathing, no retractions or nasal flaring. Abdomen/GI: Soft, non-tender, with normal bowel sounds. No distension or tympany. No guarding or rebound. No evidence of tenderness throughout. Back: No spinal tenderness. No costovertebral tenderness. Full range of motion. Skin: Warm, dry with normal turgor. Normal color with no rashes, no lesions, and no evidence of cellulitis. MS/ Extremity: Pulses equal, no cyanosis. Neurovascular intact. Full, normal range of motion. Neuro: Awake and alert, GCS 15, oriented to person, place, time, and situation. Cranial nerves II-XII grossly intact. Motor strength 5/5 in all extremities. Sensory grossly intact. Cerebellar exam normal. Normal gait. Psych: Awake, alert, with orientation to person, place and time. Behavior, mood, and affect are within normal limits. Vital Signs: 12:07 BP 171 / 106; Pulse 70; Resp 17; Temp 97.8; Pulse Ox 100% ; Weight 71.21 kg; Height 5 ll1 ft. 5 in. ; Pain 3/10; 12:07 Body Mass Index 26.13 (71.21 kg, 165.1 cm) ll1 12:07 Pain Scale: Adult ll1 MDM: 12:08 Patient medically screened. gb1 13:22 Differential diagnosis: hypertensive crisis, Malignant HTN, CVA, TIA. Data reviewed: gb1 vital signs, nurses notes. 13:25 Refusal of service: The patient/guardian displays adequate decision making capability gb1 and despite a detailed discussion of alternatives, benefits, risks, and consequences refuses: CT Scan, all lab tests, I discussed with the patient at length the ER evaluation for near syncope or repeated syncope episodes would be to obtain labs and a CT of the brain to rule out any life-threatening disease processes to include TIA versus CVA versus brain mass versus electrolyte abnormality versus symptomatic anemia. The patient at this time refused all of those interventions in the emergency department today. Her is at the bedside and did witness her refusal. I made the charge nurse aware as well as the patient's bedside nurse. The patient was informed of these return precautions and the risks of leaving without the need for emergency department evaluation today for syncope. She expressed was in understanding and walked out of the emergency department without her discharge paperwork.. Administered Medications: No medications were administered Disposition: 13:26 Chart complete. gb1 Disposition Summary: 09/19/23 13:08 Discharge Ordered Notes: Location: Home gb1 Condition: Stable gb1 Diagnosis - Essential (primary) hypertension gb1 Followup: gb1 - With: Elvis Dominguez MD - When: 48 Hours - Reason: Re-evaluation by your physician Forms: - Medication Reconciliation Form gb1 - Thank You Letter gb1 - Antibiotic Education gb1 - Prescription Opioid Use gb1 - Patient Portal Instructions gb1 - Leadership Thank You Letter gb1 Signatures: Tiara Ojeda, RN YT iw Felix Paz RN RN ll1 Vani Anne MD MD gb1
--- NOTE | 2023-09-19 13:08 | ER ---
Nurse's Notes [facility] Name: Sofia Tejada Age: 43 yrs Sex: Female : 1980 Arrival Date: 09/19/2023 Time: 11:45 Bed 9 Private MD: Diagnosis: Essential (primary) hypertension Presentation: 09/19 11:58 Coronavirus screen: Client denies travel out of the [place] in the last 14 days. Ebola iw Screen: Patient denies travel to an Ebola-affected area in the 21 days before illness onset. No acute neurological deficit is noted. Initial Sepsis Screen: Does the patient meet any 2 criteria? No. Patient's initial sepsis screen is negative. Does the patient have a suspected source of infection? No. Patient's initial sepsis screen is negative. Risk Assessment: Do you want to hurt yourself or someone else? Patient reports no desire to harm self or others. 11:58 Method Of Arrival: Ambulatory iw 11:58 Acuity: PEÑA 3 iw 12:07 Chief complaint: Patient states: Syncope event yesterday while working. BP was high ll1 yesterday, went to [facility]. Started having chest pressure and near syncope today. Onset of symptoms was September 18, 2023. Stroke Activation: Symptom onset > 6 hours Physician: Stroke Attending; Name: ; Notified At: ; Arrived At: Physician: Chief Stroke Resident; Name: ; Notified At: ; Arrived At: Physician: Stroke Resident; Name: ; Notified At: ; Arrived At: Physician: ED Attending; Name: ; Notified At: ; Arrived At: Physician: ED Resident; Name: ; Notified At: ; Arrived At: Historical: - Allergies: 11:58 No Known Allergies; iw - PMHx: 11:58 Diabetes - NIDDM; Hypertension; Seizures; iw 12:09 "stroke'like symptoms in December; ll1 - PSHx: 12:09 hysterectomy; Appendectomy; Cholecystectomy; ll1 - Immunization history:: Adult Immunizations up to date. - Social history:: Smoking status: Reported history of juuling and/or vaping. Patient denies any tobacco usage or history of. Screenin:05 [facility] ED Fall Risk Assessment (Adult) History of falling in the last 3 months, kc6 including since admission No falls in past 3 months (0 pts) Confusion or Disorientation No (0 pts) Intoxicated or Sedated No (0 pts) Impaired Gait No (0 pts) Mobility Assist Device Used No (0 pt) Altered Elimination No (0 pt) Score/Fall Risk Level 0 - 2 = Low Risk. Abuse screen: Denies threats or abuse. Denies injuries from another. Nutritional screening: No deficits noted. Tuberculosis screening: No symptoms or risk factors identified. Assessment: 13:05 Reassessment: Dr. Anne at bedside speaking with pt. pt appears to be unhappy with kc6 plan of care at this time and left prior to treatment. no IV in place at this time. Vital Signs: 12:07 BP 171 / 106; Pulse 70; Resp 17; Temp 97.8; Pulse Ox 100% ; Weight 71.21 kg; Height 5 ll1 ft. 5 in. ; Pain 3/10; 12:07 Body Mass Index 26.13 (71.21 kg, 165.1 cm) ll1 12:07 Pain Scale: Adult ll1 ED Course: 11:47 Patient arrived in ED. rg4 11:58 Triage completed. iw 11:58 Arm band placed on. iw 12:08 Vani Anne MD is Attending Physician. gb1 12:55 Elana Cardozo, TY is Primary Nurse. kc6 13:05 Patient has correct armband on for positive identification. Bed in low position. Call kc6 light in reach. Side rails up X 1. Client placed on continuous cardiac and pulse oximetry monitoring. NIBP monitoring applied. 13:05 Patient maintains SpO2 saturation greater than 95% on room air. kc6 13:05 No provider procedures requiring assistance completed. Patient did not have IV access kc6 during this emergency room visit. 13:07 Elvis Dominguez MD is Referral Physician. gb1 Administered Medications: No medications were administered Medication: 13:05 VIS not applicable for this client. kc6 Outcome: 13:05 Discharged to home ambulatory, with significant other, kc6 13:05 Condition: good 13:05 Discharge instructions given to patient, Instructed on discharge instructions, follow up and referral plans. Demonstrated understanding of instructions, follow-up care, 13:08 Discharge ordered by . gb1 13:28 Patient left the ED. kc6 Signatures: Tiara Ojeda RN RN iw Shauna Cornejo rg4 Felix Paz RN RN ll1 Elana Cardozo, RN RN kc6 Vani Anne MD MD gb1
[2023-09-19 13:57] VITALS: BP 171/106; TEMP 97.8; O2SAT 100
== END ==
LOC: ER 11:45
DX: I10 Essential (primary) hypertension (principal); E11.9 Type 2 diabetes mellitus without complications
CPT/HCPCS: 99284